=== PATIENT | male | born 1980 | race Caucasian/White ===

== ENCOUNTER 2022-01-04 16:44 | Emergency (ER) | payer BC, SELFPAY ==
[2022-01-04 16:47] VITALS: BP 165/110; PULSE 96; RESP 20; TEMP 36.3; O2SAT 94; BMI 47.3
--- NOTE | 2022-01-04 17:10 | ED.GENADULT ---
HPI - General Adult General Chief complaint: Extremity Pain/Injury, Lower Stated complaint: Gout Time Seen by Provider: 01/04/22 16:49 History of Present Illness HPI narrative: 41-year-old male coming in today complaining of foot pain. States that he feels like his usual gout. He states that he generally has a in his left knee or left foot however today's in his right foot. He states that since March when he got COVID he has been getting gouty attacks once or twice every month. States that he has tried allopurinol which did not work. States that he tried Humira in the past which were quite well however his insurance would not cover. He has not tried any other daily doubt preventative medication. He denies fevers or chills or any systemic symptoms. States that the pain and swelling started yesterday. Located in the left foot. Does not radiate up the leg. He recently had IM Solu-Medrol a Medrol Dosepak and Toradol-he is requesting the same treatment today. Related Data Previous Rx's Medication Instructions Recorded ketorolac 10 mg tablet 10 mg PO TID 5 Days #15 tab 01/04/22 methylprednisolone 4 mg tablets in See Rx Instructions .ROUTE 01/04/22 a dose pack (Medrol (Curtis)) .COMPLEX #21 ea Allergies Allergy/AdvReac Type Severity Reaction Status Date / Time indomethacin Allergy Intermediate Verified 01/04/22 16:54 Review of Systems Narrative: Entire review of systems was done was negative except for those things mentioned in the HPI. Exam Narrative: Exam Narrative: Obese, well-developed patient in no acute distress. Alert and oriented. Answers questions appropriately. Mood and affect are appropriate. Thoughts are goal oriented and rational. No tangential or magical thinking noted. Patient speaks in full sentences without needing to catch his breath. HEENT: Normocephalic atraumatic. Pupils are equally round reactive to light. Extraocular muscles are intact. Conjunctivae are moist without any icterus noted. Extremities: Left lower extremity is without edema. Normal DP and PT pulses. Right lower extremity shows a swollen right foot. He has a lot of tenderness on the dorsal surface of the foot. He has no swelling at the ankle. The foot is slightly erythematous but not indurated. The he has normal DP and PT pulses. Warm to touch. Const: Vital Signs, click to edit/add: Vital Signs - 24 hr 07/10/22 16:47 Temperature 97.3 F L Pulse Rate [Pulse Oximeter] 96 Respiratory Rate 20 Blood Pressure [Ri ght Upper Arm] 165/110 H Pulse Oximetry 94 Course Course Hospital Course: Discussed with the patient that this presentation could be cellulitis as well. Patient is quite certain that this is gout-states that this is how his gout always presents, encompassing the entire foot. Therefore, we did go ahead and do 60 mg of IM Solu-Medrol today while in the ER. Vital Signs Vital signs: Initial Vital Signs Temperature 97.3 F L 01/04/22 16:47 Temperature Source Temporal Artery Scan 01/04/22 16:47 Pulse Rate 96 01/04/22 16:47 Respiratory Rate 20 01/04/22 16:47 Blood Pressure 165/110 H 01/04/22 16:47 Blood Pressure Mean 128 01/04/22 16:47 Blood Pressure Position Supine 01/04/22 16:47 Pulse Oximetry 94 01/04/22 16:47 Oxygen Delivery Method 01/04/22 16:47 Vital Signs Temperature 97.3 F L 01/04/22 16:47 Pulse Rate 96 01/04/22 16:47 Respiratory Rate 20 01/04/22 16:47 Blood Pressure 165/110 H 01/04/22 16:47 Pulse Oximetry 94 01/04/22 16:47 Temperature 97.3 F L 01/04/22 16:47 Pulse Rate 96 01/04/22 16:47 Respiratory Rate 20 01/04/22 16:47 Blood Pressure 165/110 H 01/04/22 16:47 Pulse Oximetry 94 01/04/22 16:47 Medical Decision Making [facility] Narrative Medical decision making narrative: Patient will be discharged home with Toradol and a Medrol Dosepak. He understands if he is not seeing improvement in the next 24-48 hours he should return. He should return if he develops a fever, worsening pain or if the erythema starts to spread up the leg. Differential Diagnosis Differential Diagnosis: Includes cellulitis. Medical Records Medical records reviewed: Yes I reviewed the patient's medical records Discharge Plan Discharge Clinical Impression: Gout Patient Disposition: Home, Self-Care Condition: Stable Instructions: Gout (ED) Additional Instructions: Take all medication as prescribed. Follow-up with your primary care provider to discuss other gout prevention strategies such as Uloric. Return to the ER if you develop fever, increasing redness that spreads up the leg, fevers or vomiting. Prescriptions: New ketorolac 10 mg tablet 10 mg PO TID 5 Days Qty: 15 0RF methylprednisolone [Medrol (Curtis)] 4 mg tablets,dose pack See Rx Instructions .ROUTE .COMPLEX Qty: 21 0RF Rx Instructions: orally per package directions Stand Alone Forms: [facility] Info Instructions
[2022-01-04] MEDS: METHYLPREDNISOLONE 60 EACH IM (17:27)
== END 2022-01-04 17:38 | disposition home or self-care (01) ==
LOC: ED 17:18
PROVIDERS: Emergency Provider Family Medicine
DX: M10.9 Gout, unspecified (principal)
CPT/HCPCS: 96372; 99283; 99284

== ENCOUNTER 2023-04-25 12:00 | Emergency (ER) | payer BC, SELFPAY ==
[2023-04-25 12:11] VITALS: BP 172/94; PULSE 80; RESP 18; TEMP 37; O2SAT 95; BMI 41.5
--- NOTE | 2023-04-25 12:31 | ED.GENADULT ---
HPI - General Adult General Chief complaint: Extremity Pain/Injury, Lower Stated complaint: foot gout Time Seen by Provider: 04/25/23 12:05 Source: patient Mode of arrival: ambulatory Limitations: no limitations History of Present Illness HPI narrative: 42-year-old male presenting today with gout flare-up the of the right foot. Patient has a long history of very difficult to treat gout with frequent flare ups. He just finished a Medrol Dosepak which he told his provider does not work as soon as he drops the dose his pain comes back. He states that he recently the only thing that has worked is a long taper of prednisone. He states that he was told by his provider that long-term steroid use can be harmful and that the provider did not want to give him any prednisone. Patient states that he has not gone in to talked to a primary care provider about preventative medication. He states he has taken allopurinol in the past which does not help and he has been treated with indomethacin as well as colchicine which also did not help. He has never taken Uloric in states that he is too busy to go see a primary care provider. Denies any systemic symptoms. Related Data Previous Rx's Medication Instructions Recorded ketorolac 10 mg tablet 10 mg PO TID 5 days #15 tabs 01/04/22 methylprednisolone 4 mg tablets in See Rx Instructions PO .COMPLEX 01/04/22 a dose pack (Medrol (Curtis)) #21 ea prednisone 20 mg tablet 20 mg PO DIRECTED 9 days #18 04/25/23 tabs Allergies Allergy/AdvReac Type Severity Reaction Status Date / Time indomethacin Allergy Intermediate Verified 07/22/22 14:02 Review of Systems Status of ROS: Reports: 6 or more systems reviewed and unremarkable except as noted in History and below [facility] PFS Surgical History History of elbow surgery (09/28/13) ?Z98.890 - Other specified postprocedural states (ICD-10) Social History Smoking Status: Never smoker Do you use any of these nicotine containing products: None Second hand tobacco smoke exposure: No How often do you have a drink containing alcohol: never How often do you have six or more drinks on one occasion: Never AUDIT-C Alcohol total score: 0 Non-prescribed substance use: denies use service: Yes Exam Narrative: Exam Narrative: Obese, well-developed patient in no acute distress. Alert and oriented. Answers questions appropriately. Mood and affect are appropriate. Thoughts are goal oriented and rational. No tangential or magical thinking noted. Patient speaks in full sentences without needing to catch his breath. HEENT: Normocephalic atraumatic. Pupils are equally round reactive to light. Extraocular muscles are intact. Conjunctivae are moist without any icterus noted. Moist mucous membranes. Extremities: Right foot is swollen, not erythematous. He has tenderness to touch over the dorsal surface of the entire foot. 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.) Const: Vital Signs, click to edit/add: Vital Signs - 24 hr 04/25/23 12:11 Temperature 98.6 F Pulse Rate [Pulse Oximeter] 80 Respiratory Rate 18 Blood Pressure [Le ft Upper Arm] 172/94 H Pulse Oximetry 95 Oxygen Delivery Me thod Room Air Course Vital Signs Vital signs: Initial Vital Signs Temperature 98.6 F 04/25/23 12:11 Temperature Source Temporal Artery Scan 04/25/23 12:11 Pulse Rate 80 04/25/23 12:11 Pulse Rhythm Regular 04/25/23 12:11 Respiratory Rate 18 04/25/23 12:11 Blood Pressure 172/94 H 04/25/23 12:11 Blood Pressure Mean 120 H 04/25/23 12:11 Blood Pressure Position Supine 04/25/23 12:11 Pulse Oximetry 95 04/25/23 12:11 Oxygen Delivery Method Room Air 04/25/23 12:11 Vital Signs Temperature 98.6 F 04/25/23 12:11 Pulse Rate 80 04/25/23 12:11 Respiratory Rate 18 04/25/23 12:11 Blood Pressure 172/94 H 04/25/23 12:11 Pulse Oximetry 95 04/25/23 12:11 Oxygen Delivery Method Room Air 04/25/23 12:11 Temperature 98.6 F 04/25/23 12:11 Pulse Rate 80 04/25/23 12:11 Respiratory Rate 18 04/25/23 12:11 Blood Pressure 172/94 H 04/25/23 12:11 Pulse Oximetry 95 04/25/23 12:11 Oxygen Delivery Method Room Air 10/29/23 12:11 Medical Decision Making MDM Narrative Medical decision making narrative: 42-year-old male with poorly controlled gout. We had lengthy discussion today about him needing to see primary care to discuss preventative measures so that he can decrease his steroid use. Patient states that he understands and that his new year's resolution will be to take better care of himself. I asked him not to wait until the new year. Medical Records Medical records reviewed: Yes I reviewed the patient's medical records Discharge Plan Discharge Clinical Impression: Gout Patient Disposition: Home, Self-Care Condition: Stable Additional Instructions: You must follow-up with a primary care provider to discuss preventative medication so that you can decrease your use of steroids. You should also discuss alternative diagnoses to your foot pain. Prescriptions: New prednisone 20 mg tablet 20 mg PO DIRECTED 9 Days Qty: 18 0RF Rx Instructions: 60 mg p.o. daily for 3 days (3 tablets daily on day 1-3), 40 mg daily for 3 days (2 tablets daily on days 4-6), 20 mg daily for 3 days (1 tablet daily on days 7-9). No Action ketorolac 10 mg tablet 10 mg PO TID 5 Days Qty: 15 0RF methylprednisolone [Medrol (Curtis)] 4 mg tablets,dose pack See Rx Instructions .ROUTE .COMPLEX Qty: 21 0RF Rx Instructions: orally per package directions Follow Up/Referrals: Provider,Not a Local [Primary Care Provider] - Stand Alone Forms: [employer] Info Instructions
[2023-04-25] MEDS: KETOROLAC 30 MG/ML inj 60 MG IM (13:16)
== END 2023-04-25 13:31 | disposition home or self-care (01) ==
LOC: ED 12:40
PROVIDERS: Emergency Provider Family Medicine
DX: M10.9 Gout, unspecified (principal)
CPT/HCPCS: 96372; 99283; J1885

== ENCOUNTER 2023-10-23 05:03 | Emergency (ER) | payer BC, SELFPAY ==
[2023-10-23 05:11] VITALS: BP 205/122; PULSE 87; RESP 18; TEMP 36.7; O2SAT 96; BMI 45.0
--- NOTE | 2023-10-23 05:18 | ED.GENADULT ---
HPI - General Adult General Chief complaint: Unspecified Complaint, Adult Stated complaint: right foot pain/gout Time Seen by Provider: 10/23/23 05:09 History of Present Illness HPI narrative: Patient is a 43-year-old gentleman who comes in with pain and swelling in his right ankle. He has history of gout but has not tolerated allopurinol in the past. He is has over the last 2 days developed redness swelling and induration of the right foot and ankle. He has no skin breakdown and no warmth. This is a typical presentation for gout for him. He does well with a course of prednisone. Related Data Previous Rx's Medication Instructions Recorded prednisone 20 mg tablet 20 mg PO QDAY #18 tabs 09/07/23 Allergies Allergy/AdvReac Type Severity Reaction Status Date / Time indomethacin Allergy Intermediate Verified 09/07/23 13:51 colchicine Allergy Unknown Verified 09/07/23 13:51 Review of Systems Status of ROS: Reports: 10 or more systems reviewed and unremarkable except as noted in History and below PFSH PFS Surgical History History of elbow surgery (09/28/13) ?Z98.890 - Other specified postprocedural states (ICD-10) Social History Smoking Status: Never smoker Do you use any of these nicotine containing products: None Second hand tobacco smoke exposure: No How often do you have a drink containing alcohol: never How often do you have six or more drinks on one occasion: Never AUDIT-C Alcohol total score: 0 Non-prescribed substance use: denies use service: Yes Exam Narrative: Exam Narrative: EXAM GENERAL: Patient appears comfortable and well. EYES: No scleral icterus. LYMPH: No supraclavicular or cervical lymphadenopathy. SKIN: Visible skin seen during exam normal or with benign process only. EXT: Swelling and redness on the right foot ankle no other significant findings. Patient is missing his 5th toe from a childhood injury. HEART: Regular rate and rhythm with no murmurs, rubs, or gallops. LUNGS: Clear to auscultation bilaterally with no crackles or wheezes. ABD: Soft, non tender, non distended. PSYCH: Good eye contact, speech is not pressured. Const: Vital Signs, click to edit/add: Vital Signs - 24 hr 10/23/23 05:11 Temperature 98.1 F Pulse Rate [Pulse Oximeter] 87 Respiratory Rate 18 Blood Pressure [Ri ght Upper Arm] 205/122 H Pulse Oximetry 96 Oxygen Delivery Me thod Room Air Course Course ED Course: Patient seen and examined. Vital Signs Vital signs: Initial Vital Signs Temperature 98.1 F 10/23/23 05:11 Temperature Source Temporal Artery Scan 10/23/23 05:11 Pulse Rate 87 10/23/23 05:11 Respiratory Rate 18 10/23/23 05:11 Blood Pressure 205/122 H 10/23/23 05:11 Blood Pressure Mean 149 H 10/23/23 05:11 Blood Pressure Position Sitting 10/23/23 05:11 Pulse Oximetry 96 10/23/23 05:11 Oxygen Delivery Method Room Air 10/23/23 05:11 Vital Signs Temperature 98.1 F 10/23/23 05:11 Pulse Rate 87 10/23/23 05:11 Respiratory Rate 18 10/23/23 05:11 Blood Pressure 205/122 H 10/23/23 05:11 Pulse Oximetry 96 10/23/23 05:11 Oxygen Delivery Method Room Air 10/23/23 05:11 Temperature 98.1 F 10/23/23 05:11 Pulse Rate 87 10/23/23 05:11 Respiratory Rate 18 10/23/23 05:11 Blood Pressure 205/122 H 10/23/23 05:11 Pulse Oximetry 96 10/23/23 05:11 Oxygen Delivery Method Room Air 10/23/23 05:11 Medical Decision Making [facility] Narrative Medical decision making narrative: Patient is a 43-year-old gentleman with history of gout who unfortunately has an episode of gout. Will plan to treat him with prednisone 20 mg twice daily for 5 days. I did recommend he follow-up with his primary physician potentially be started on Uloric 0 or similar product. Differential diagnosis includes but not limited to septic joint gout osteoarthritis peripheral vascular disease rheumatoid arthritis cellulitis. Discharge Plan Discharge Clinical Impression: Gout Condition: Stable Instructions: Gout (ED) Additional Instructions: Prednisone as directed Follow-up with your doctor Activity Level: No Restrictions Discharge Diet: Regular Prescriptions: No Action prednisone 20 mg tablet 20 mg PO QDAY Qty: 18 0RF Rx Instructions: 60 mg p.o. daily for 3 days (3 tablets daily on day 1-3), 40 mg daily for 3 days (2 tablets daily on days 4-6), 20 mg daily for 3 days (1 tablet daily on days 7-9) Follow Up/Referrals: Provider,Not a Local [Primary Care Provider] - Stand Alone Forms: [employer] Info Instructions
== END 2023-10-23 05:25 | disposition home or self-care (01) ==
LOC: ED 05:23
PROVIDERS: Emergency Provider Internal Medicine
DX: M10.9 Gout, unspecified (principal)
CPT/HCPCS: 99283

== ENCOUNTER 2024-01-17 21:51 | Emergency (ER) | payer BC, SELFPAY ==
[2024-01-17 21:56] VITALS: BP 161/90; PULSE 102; RESP 16; TEMP 36.4; O2SAT 95; BMI 47.3
--- NOTE | 2024-01-17 22:05 | ED_ITS ---
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 - Last Filed: 01/19/24 11:39> Activity Level: Activity as Tolerated <Angelita Watkins MD - Last Filed: 01/19/24 11:39> Activity as Tolerated <Abdiel Ojeda MD - Last Filed: 01/18/24 02:07> Discharge Diet: Regular <Angelita Watkins MD - Last Filed: 01/19/24 11:39> Regular <Abdiel Ojeda MD - Last Filed: 01/18/24 02:07> Prescriptions: New doxycycline monohydrate 100 mg capsule 100 mg PO BID 14 Days Qty: 28 0RF No Action lisinopril 20 mg tablet 20 mg PO DAILY <Angelita Watkins MD - Last Filed: 01/19/24 11:39> Follow Up/Referrals: Provider,Not a Local [Staff Physician] - <Angelita Watkins MD - Last Filed: 01/19/24 11:39> Stand Alone Forms: MyHealth Info Instructions <Angelita Watkins MD - Last Filed: 01/19/24 11:39>
[2024-01-17 22:15] VITALS: O2SAT 97
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
--- NOTE | 2024-01-17 22:15 | CRLHL7_ITS ---
For Patients: As a result of the Century Cures Act, medical imaging exams and procedure reports are released immediately into your electronic medical record. You may view this report before your referring provider. If you have questions, please contact your health care provider. INDICATION: Chest discomfort TECHNIQUE: Chest radiograph 1 view COMPARISON: 08/29/2018 FINDINGS: The sensitivity and specificity of the exam are moderately limited by the patient`s body habitus. Mediastinum: The mediastinum is normal in appearance. The heart silhouette is normal in size and morphology. Lung: Small lung volumes are present with mild perihilar atelectasis noted. No sign of pleural effusion seen. No pneumothorax is identified. Bone and Soft tissue: Unremarkable for age. IMPRESSION: 1. Small lung volumes are present with mild perihilar atelectasis noted. Dictated by Sinan Smith MD @ 01/17/2024 11:37:22 PM Dictated by: Sinan Smith MD @ 01/17/2024 23:37:28 (Electronically Signed)
[2024-01-17] MEDS: METOCLOPRAMIDE HCL 10 MG in 0.9 % SODIUM CHLORIDE 100 ml 100 ML 306 MG IVPB (22:50)
[2024-01-17] MEDS: 0.9 % SODIUM CHLORIDE 1000 ml 1,000 ML 500 ML IV (22:50)
[2024-01-17] MEDS: diphenhydrAMINE 50 MG/ML inj 25 MG IVP (22:50)
[2024-01-17 22:55] LABS: Basophils Percent Auto 0.3 % (0.0-3.0); Eosinophils Percent Auto 1.4 % (0.0-7.0); Hematocrit 51.9 % (37.0-53.0); Hemoglobin* 17.3 gm/dL (13.5-17.5); Immature Granulocytes Pct Auto 0.1 %; Lymphocytes Percent Auto 87.6 % (20-44); Mean Corpuscular HGB Conc 33 gm/dL (32-36); Mean Corpuscular Hemoglobin 27 pg (26-34); Mean Corpuscular Volume 80 fL (80-100); Neutrophils Percent Auto 7.6 % (42.0-72.0); Platelet Count* 140 K/uL (140-440); RDW Coefficient of Variation % 11.7 % (11.5-15.5); Red Blood Count 6.51 m/uL (4.30-5.90); White Blood Count* 15.21 K/uL (4.50-11.00)
[2024-01-17 22:57] LABS: Slide Review Reflex No
[2024-01-17 23:01] LABS: Albumin* 4.2 g/dL (3.3-5.0); Chloride* 101 mmol/L (96-114); Sodium* 137 mmol/L (135-149)
[2024-01-17 23:02] LABS: Potassium* 3.7 mmol/L (3.6-5.1)
[2024-01-17 23:04] LABS: Alkaline Phosphatase* 79 U/L (40-150); Anion Gap 7 mEq/L (7-15); Aspartate Amino Transferase* 35 U/L (12-35); Carbon Dioxide* 29 mmol/L (20-32); Creatinine* 1.1 mg/dL (0.5-1.5); Estimated Glomerular Filt Rate 85 ml/min; Total Protein* 7.1 g/dL (6.0-8.3)
[2024-01-17 23:05] LABS: Alanine Aminotransferase* 43 U/L (4-50); Blood Urea Nitrogen* 15 mg/dL (5-24); Glucose* 114 mg/dL (60-115)
[2024-01-17 23:15] LABS: Troponin I* 0.01 ng/mL (0.01-0.04)
[2024-01-17 23:23] LABS: D Dimer Quantitative* 2.17 ug/ml (0.00-0.50)
[2024-01-17 23:43] VITALS: TEMP 39.3
[2024-01-17 23:58] LABS: RBC Urine 0-2 (0-2)
[2024-01-18] VITALS: BP 188/97; PULSE 102; RESP 20; O2SAT 92
--- NOTE | 2024-01-18 | CRLHL7_ITS ---
For Patients: As a result of the Century Cures Act, medical imaging exams and procedure reports are released immediately into your electronic medical record. You may view this report before your referring provider. If you have questions, please contact your health care provider. INDICATION: Chest pain. TECHNIQUE: CT chest PE was acquired with 95 cc Isovue 370 IV contrast. COMPARISON: Chest radiograph 01/17/2024. FINDINGS: Heart and vasculature: Contrast opacification of the pulmonary arterial tree is suboptimal. No sign of large central pulmonary embolism. Heart size is normal. Thoracic aorta and pulmonary artery are normal in caliber. Lungs and pleura: Lungs and pleural spaces are clear. No suspicious nodules or infiltrates. No pleural effusions, pleural thickening, or pneumothorax. Lymph nodes/mediastinum: No mediastinal, hilar, or axillary adenopathy. Thyroid gland is unremarkable. Chest wall: No masses. Upper abdomen: Please refer to separate concurrent CT abdomen and pelvis. Bones: Unremarkable for age. IMPRESSION: 1. Suboptimal contrast opacification of the pulmonary arteries without evidence of large central pulmonary embolism. 2. No acute infiltrates. Please note that all CT scans at this facility use dose modulation, iterative reconstruction, and/or weight-based dosing when appropriate to reduce radiation dose to as low as reasonably achievable. Dictated by Justin Trejo MD @ 01/18/2024 1:22:31 AM (Electronically Signed)
--- NOTE | 2024-01-18 | CRLHL7_ITS ---
For Patients: As a result of the Century Cures Act, medical imaging exams and procedure reports are released immediately into your electronic medical record. You may view this report before your referring provider. If you have questions, please contact your health care provider. INDICATION: Fever. TECHNIQUE: CT abdomen and pelvis acquired with 95 cc Isovue 370 IV contrast. COMPARISON: None. FINDINGS: Lower chest: Please refer to separate concurrent CT chest PE. Liver: Hepatic steatosis. No suspicious masses. Gallbladder and bile ducts: Contracted gallbladder. No stones or inflammation. No biliary ductal dilatation. Spleen: Enlarged spleen. Adrenal glands: Unremarkable. No nodules. Pancreas: Unremarkable. No mass or inflammation. Kidneys: Unremarkable. No suspicious masses, stones, or hydronephrosis. GI tract: Unremarkable. Normal in caliber. No evidence of obstruction. Normal appendix. Lymph nodes: No lymphadenopathy. Vasculature: Unremarkable. Omentum/Peritoneum/Abdominal Wall: Fat containing umbilical hernia. No free air or significant free fluid. Pelvis: Unremarkable. Bones: Severe L4-L5 disc space narrowing. IMPRESSION: 1. Splenomegaly. 2. Otherwise no acute abdominal or pelvic abnormality. 3. Hepatic steatosis. Please note that all CT scans at this facility use dose modulation, iterative reconstruction, and/or weight-based dosing when appropriate to reduce radiation dose to as low as reasonably achievable. Dictated by Justin Trejo MD @ 01/18/2024 1:25:33 AM (Electronically Signed)
[2024-01-18 00:02] LABS: Appearance Urine Clear (Clear); Bilirubin Urine Negative (Negative); Blood Urine Trace-intact (Negative); Color Urine Yellow (Yellow); Glucose Urine Negative (Negative); Ketones Urine Negative (Negative); Leukocyte Esterase Urine Negative (Negative); Nitrite Urine Negative (Negative); Protein Urine Negative (Negative); Urobilinogen Urine 0.2 (0.2-1.0)
[2024-01-18 00:04] VITALS: TEMP 39.3
[2024-01-18] MEDS: 0.9 % SODIUM CHLORIDE 1000 ml 1,000 ML IV (00:04)
[2024-01-18] MEDS: ACETAMINOPHEN 500 MG TABLET 1000 MG PO (00:04)
[2024-01-18 00:14] LABS: Lactate* 1.3 mmol/L (0.5-1.9)
[2024-01-18 00:26] VITALS: BP 188/97; PULSE 104; RESP 20; O2SAT 92
[2024-01-18 00:31] LABS: Bacteria Urine Few; Squamous Epithelial Cell Urine Few (None-Few); WBC Urine 0-2 (0-5)
[2024-01-18 00:35] LABS: PCR FLU A Negative PCR FLU A (Negative); PCR FLU B Negative PCR FLU B (Negative); PCR RSV Negative PCR RSV (Negative); SARS PCR* Negative SARS-CoV-2 (Negative)
[2024-01-18 00:43] LABS: Procalcitonin* 0.35 ng/mL (<0.50)
[2024-01-18 01:09] VITALS: BP 177/98; PULSE 118; RESP 18; O2SAT 94
[2024-01-18 02:01] VITALS: BP 149/84; PULSE 104; RESP 18; O2SAT 94
[2024-01-18] MEDS: DOXYCYCLINE HYCLATE 100 MG PO (02:08)
--- NOTE | 2024-01-19 07:33 | PC.NURSE ---
Pt called looking for results from tick panel. Informed pt that lands are still pending. Pt stated that he still feels bad with a headache and his joints feel like they have gravel. Advised pt that he could call his PCP to ask for medical advice or he was welcome to be reevaluated in the ER if he chooses. Pt stated he understood. No further questions
[2024-01-19 23:55] LABS: Lyme ELISA Reflex 0.15 IV (<=0.90)
[2024-01-20 19:15] LABS: Anaplasma phagocyt PCR Not Detected; Babesia microti by PCR Not Detected; Babesia species by PCR Not Detected; Ehrlichia chaffeensis by PCR Not Detected; Ehrlichia ewingii/canis by PCR Not Detected; Ehrlichia muris-like by PCR Not Detected
== END 2024-01-18 02:21 | disposition home or self-care (01) ==
PROVIDERS: Family Medicine; Emergency Provider Family Medicine; PCP Family Medicine
DX: R51.9 Headache, unspecified (principal); R50.9 Fever, unspecified; S00.86XA Insect bite (nonvenomous) of other part of head, initial encounter
CPT/HCPCS: 36415; 70450; 71045; 71275; 74177; 80053; 81001; 83605; 84145; 84484; 85025; 85379; 86618; 87040; 87086; 87468; 87469; 87484; 87631; 87798; 93005; 94761; 96365; 96375; 99285; A9270; J1200; J2765; J7030; Q9967

== ENCOUNTER 2024-09-22 12:06 | Outpatient (CLI) | payer BC, SELFPAY | END 2024-09-22 12:07 | disposition home or self-care (01) | LOC: AMB 09-25 09:07 | PROVIDERS: PCP Family Medicine; Visit Provider Family Medicine | DX: R07.9 Chest pain, unspecified (principal) | CPT/HCPCS: A0998 ==

== ENCOUNTER 2024-09-22 12:35 | Emergency (ER) | payer BC, SELFPAY ==
[2024-09-22] VITALS (56 sets, daily range): BP systolic 115–188; BP diastolic 64–151; PULSE 67–151; RESP 0–23; TEMP 36.1; O2SAT 86–96
--- OUTSIDE RECORDS SUMMARY | 2024-09-22 12:36 | XMS_ITS | Clinical Summary ---
Author Organization [facility] Address [address] [place] [address] Care Team Providers Care Heel Burnisher Name Role Phone Abdiel Chavez MD Primary Care Provider [phone] Allergies Active Allergy Reactions Criticality Noted Date Comments Indomethacin Nausea and Vomiting 04/03/2013 Other reaction(s): Other (see comments) Urine retention Urine retention Tramadol High 09/06/2021 Other reaction(s): Other (see comments) Medications oxyCODONE (ROXICODONE) 5 MG tabletIndicatio ns:Tendonitis of right pectoralis major Take 1-2 tablets (5-10 mg) by mouth every 4 hours as needed for moderate to severe pain 20 tablet 06/24/2022 Active senna-docusate (SENOKOT-S/PARKER COLACE) 8.6-50 MG tabletIndicatio ns:Tendonitis of right pectoralis major Take 1-2 tablets by mouth 2 times daily 30 tablet 06/24/2022 Active ondansetron (ZOFRAN ODT) 4 MG ODT tabIndications: Tendonitis of right pectoralis major Take 1 tablet (4 mg) by mouth every 8 hours as needed for nausea 4 tablet 06/24/2022 Active hydrOXYzine (VISTARIL) 25 MG capsuleIndicati ons:Tendonitis of right pectoralis major Take 2 capsules (50 mg) by mouth every 6 hours as needed for itching or anxiety (TAKE WITH THE OXYCODONE) 20 capsule 06/24/2022 Active Social History Tobacco Use Types Packs/Day Years Used Date Smoking Tobacco: Never Smokeless Tobacco: Never Tobacco Cessation:Counseling Given: Not Answered Alcohol Use Standard Drinks/Week Comments Not Currently 0 (1 standard drink = 0.6 oz pur e alcohol) over 11 years ago Adolescent Education Answer Date Record ed Getting School Help Needed Not on file 03/20 Sex and Gender Information Value Date Recorded Sex Assigned at Not on file Legal Sex Male 3:28 PM CDT Gender Identity Not on file Sexual Orientation Not on file Last Filed Vital Signs Vital Sign Reading Time Taken Comments Blood Pressure 141/99 07/16/2023 12:22 PM PULPER Pulse 97 07/16/2023 12:22 PM PULPER Temperature 36.3 C (97.4 F) 07/16/2023 11:12 AM PULPER Respiratory Rate 22 07/16/2023 11:12 AM PULPER Oxygen Saturation 100% 07/16/2023 12:23 PM PULPER Inhaled Oxygen Concentration - - Weight 133.8 kg (295 lb) 07/16/2023 11:12 AM PULPER Height 175.3 cm (5' 9) 06/18/2022 9:00 AM PULPER Body Mass Index 43.56 06/18/2022 9:00 AM PULPER Plan of Treatment Health Maintenance Due Date Last Done Comments ADVANCE CARE PLANNING 1979 ANNUAL REVIEW OF HM ORDERS 1979 CT COLONOGRAPHY 1979 FIT 1979 FLEX SIG 1979 sDNA (Cologuard) 1979 YEARLY PREVENTIVE VISIT 1982 COLONOSCOPY 1989 COLORECTAL CANCER SCREENING 1989 HIV SCREENING 1994 HEPATITIS C SCREENING 1997 HEPATITIS B IMMUNIZATION (1 of 3 - 19+ 3-dose series) 1998 LIPID 2019 COVID-19 Vaccine (1 - season) 2024 INFLUENZA VACCINE (#1) 2024 11/10/2021 PHQ-2 (once per calendar year) 2024 DTAP/TDAP/TD IMMUNIZATION (4 - Td or Tdap) 12/17/2025 12/18/2015, 03/13/2010, 04/05/1985, Additional history exists DIABETES SCREENING 07/16/2026 07/16/2023, 1 , 04/11/2022 ZOSTER IMMUNIZATION (1 of 2) 2029 HPV IMMUNIZATION Aged Out No longer e ligible based on patient's age to complete this topic MENINGITIS IMMUNIZATION Aged Out No l onger eligible based on patient's age to complete this topic Pneumococcal Vaccine: Pediatrics (0 to 5 Years) and At-Risk Patients (6 to 49 Years) Aged Out No longer eligible based on patient's age to complete this topic Medical Devices Implanted Type Area Assistant Golf Coach Device Identifier Shelf Expiration Date Model / Serial / Lot Button Suture Repair Large Ti F/Pectoralis Major - [id number] Implanted:Qty : 1 on 06/24/2022 by Maykel Sexton MD at [facility] Metallic Hardware/Anc hor Right: Shoulder [employer] 02/25/2026 AR-2267 / / [id number] Button Suture Repair Large Ti F/Pectoralis Major - [id number] Implanted:Qty : 2 on 06/24/2022 by Maykel Sexton MD at [facility] Metallic Hardware/Anc hor Right: Shoulder [employer] 09/25/2025 AR-2267 / / [id number] Procedures Procedure Name Priority Date/Time Associated Diagnosis Comments BASIC METABOLIC PANEL STAT 07/16/2023 11:52 AM PULPER from Last 3 Months or Most Recently Relevant to Health Maintenance Results * (ABNORMAL) Basic metabolic panel (BMP) (07/16/2023 11:52 AM PULPER) [facility] Sodium 139 135 - 145 mmol/L 07/16/2023 12:45 PM [facility] Comment:Reference intervals for this test were updated on 03/23/2023 to more accurately reflect our healthy population. There may be differences in the flagging of prior results with similar values performed with this method. Interpretation of those prior results can be made in the context of the updated reference intervals. Potassium 4.0 3.4 - 5.3 mmol/L 07/16/2023 12:45 PM [facility] Chloride 101 98 - 107 mmol/L 07/16/2023 12:45 PM [facility] Carbon Dioxide (CO2) 25 22 - 29 mmol/L 07/16/2023 12:45 PM [facility] Anion Gap 13 7 - 15 mmol/L 07/16/2023 12:45 PM [facility] Urea Nitrogen 13.7 6.0 - 20.0 mg/dL 07/16/2023 12:45 PM [facility] Creatinine 0.84 0.67 - 1.17 mg/dL 07/16/2023 12:45 PM [facility] GFR Estimate >90 >60 mL/min/1. 73m2 07/16/2023 12:45 PM [facility] Calcium 9.6 8.6 - 10.0 mg/dL 07/16/2023 12:45 PM [facility] Glucose 145(H) 70 - 99 mg/dL 07/16/2023 12:45 PM [facility] Blood STRUCTURE OF LEFT HAND / Unknown Venipuncture / Unknown 07/16/2023 11:52 AM PULPER 07/16/2023 12:21 PM PULPER us Jamshid Husain MD LAB - BLOOD ORDERABLES Final Res ult LABORATORY [facility] [address] [facility] Lab (1st floor, no room number) [place] [address], [facility] [phone] from Last 3 Months or Most Recently Relevant to Health Maintenance Insurance BCBS OUT OF STATE BCBS OUT OF STATE [place]OHNSON Advance Directives For more information, please contact: [phone] * Full Code (Latest Code Status on File) Date Activated Date Inactivated Comments 06/24/2022 10:35 PM 06/25/2022 1:02 PM All basic and advanced life-sustaining interventions are performed as appropriate Question Answer Comments Code status determined by: Discussion with lynne nt/ legal decision maker Care Teams Heel Burnisher Relationship Specialty Start Date End Date Abdiel Chavez MD [address] [place], [place] [address]wei ROE KAYY [id number] PCP - General 07/16/23
--- OUTSIDE RECORDS SUMMARY | 2024-09-22 12:37 | XMS_ITS | Clinical Summary ---
Author Organization [facility] Address [address] [place] [address] Care Team Providers Care Coding Director Name Role Phone Pcp, No Primary Care Provider Unavailabl e Allergies Active Allergy Reactions Criticality Noted Date Comments Indomethacin Vomiting 04/03/2013 Urine retention Medications colchicine 0.6 mg tabletIndication s:Gout, unspecified cause, unspecified chronicity, unspecified site Take 1 tablet by mouth once daily. 30 tablet 06/10/2018 Active acyclovir (ZOVIRAX) 400 mg tabletIndication s:Herpes simplex One oral three times daily x 7 days as needed fever blister 20 tablet 2 07/14/2018 Active predniSONE (DELTASONE) 20 mg tabletIndication s:Olecranon bursitis of left elbow Take 1 tablet by mouth once daily with a meal. 7 tablet 07/14/2018 Active diclofenac (VOLTAREN) 75 mg delayed-release tabletIndication s:Olecranon bursitis of left elbow Take 1 tablet by mouth 2 times daily with meals. 28 tablet 07/14/2018 Active amLODIPine (NORVASC) 2.5 mg tabletIndication s:Hypertension, unspecified type Take 1 tablet by mouth once daily. 30 tablet 08/30/2018 Active Active Problems Problem Noted Date Diagnosed Date Primary osteoarthritis of left ankle 02/07/2018 Lumbar herniated disc 03/22/2014 Gout 03/15/2014 HTN (hypertension) 03/14/2014 Immunizations Immunization Administration Dates Next Due DTaP 04/05/1985,10/05/1984 MMR 10/05/1984 Polio Virus, Unspecified 10/05/1984 Td (Age >=7 Years) 03/13/2010 Tdap 12/18/2015 Family History Medical History Relation Name Comments Hyperlipidemia Father Hypertension Father Diabetes Maternal Grandfather Heart Disease Maternal Grandfather i n his 80's Diabetes Maternal Grandmother Diabetes Maternal Uncle Anesthesia Problem No Family History Blood Disease No Family History Relation Name Status Comments Father Maternal Grandfather Maternal Grandmother Maternal Uncle Social History Tobacco Use Types Packs/Day Years Used Date Smoking Tobacco: Never Smokeless Tobacco: Never Tobacco Cessation:Counseling Given: Yes Alcohol Use Standard Drinks/Week Comments No 0 (1 standard drink = 0.6 oz pur e alcohol) 2014 PHQ-2 Answer Date Recorded PHQ-2 Score 3 08/29/2018 Sex and Gender Information Value Date Recorded Sex Assigned at Not on file Legal Sex Male 8:07 AM PUBLIC HEALTH ADMINISTRATOR Gender Identity Not on file Sexual Orientation Not on file 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 on file Not on file Not on file Obstetrics History Last Filed Vital Signs Vital Sign Reading Time Taken Comments Blood Pressure 163/93 08/30/2018 10:26 AM PUBLIC HEALTH ADMINISTRATOR Pulse 100 08/30/2018 10:26 AM PUBLIC HEALTH ADMINISTRATOR Temperature 38.4 C (101.1 F) 08/30/2018 10:26 AM PUBLIC HEALTH ADMINISTRATOR Respiratory Rate 20 01/26/2018 1:33 PM CDT Oxygen Saturation 97% 08/30/2018 10:26 AM PUBLIC HEALTH ADMINISTRATOR Inhaled Oxygen Concentration - - Weight 136.5 kg (301 lb) 08/30/2018 10:26 AM PUBLIC HEALTH ADMINISTRATOR Height 176 cm (5' 9.29) 08/30/2018 10:26 AM PUBLIC HEALTH ADMINISTRATOR Body Mass Index 44.08 08/30/2018 10:26 AM PUBLIC HEALTH ADMINISTRATOR Plan of Treatment Health Maintenance Due Date Last Done Comments HIV for age 15-65 1994 Hepatitis C screening for age 18-79 1997 Depression screening for age 12+ 10/11/2018 10/11/2017, 07/14/2016, 07/16/2015 BMI (ht and wt on same day) for age 18+ 08/31/2019 08/30/2018, 07/14/2018, 06/08/2018, Additional history exists COVID-19 vaccine series ( - 2023- season) 2024 Influenza Vaccine (#1) 2024 Colonoscopy through age 75 2024 Lipids for age 45-75 2024 03/14/2014, 03/14/20 14 Tetanus booster 12/17/2025 12/18/2015, 03/13/2010 Tdap Completed 12/18/2015 Pneumococcal series for age 6-49 Aged Out No longer eligible based on patient's age to complete this topic Goals Goal Patient Goal Type Associated Problems Recent Progress Patient-Stated? Author BLOOD PRESSURE - MAINTAINS BP less than 140/90 Blood Pressure Nicole Teran MD Procedures Procedure Name Priority Date/Time Associated Diagnosis Comments LIPID PANEL W REFLEX MEASURED LDL Routine 03/14/2014 2:39 PM CDT Hypertension from Last 3 Months or Most Recently Relevant to Health Maintenance Results * (ABNORMAL) LIPID PANEL W REFLEX MEASURED LDL (03/14/2014 2:39 PM CDT) CHOLESTEROL,TOTAL 174 100 - 199 mg/dL 03/14/2014 3:32 PM CDT [facility] TRIGLYCERIDES 522(H) <150 mg/dL 03/14/2014 3:32 PM CDT [facility] HDL CHOLESTEROL 29(L) >40 mg/dL 4 3:32 PM CDT [facility] NON-HDL CHOLESTEROL 145(H) <145 mg/dl 03/14/2014 3:32 PM CDT [facility] CHOL/HDL RATIO 6.00(H) <4.50 03/14/2014 3:32 PM CDT [facility] LDL CHOLESTEROL 4 3:32 PM CDT [facility] Comment:Invalid LDL when Tri g >400, reflexed to measured LDL PATIENT STATUS FASTING 03/14/2014 3:32 PM CDT [facility] Blood specimen (specimen) BLOOD SPECIMEN / Unknown Venipuncture / Unknown 03/14/2014 2:39 PM CDT 03/14/2014 2:40 PM CDT us Nicole Chinchilla MD CHEMISTRY Shahnaz l Result [facility] [address] [place] [address], [place] [phone] from Last 3 Months or Most Recently Relevant to Health Maintenance Advance Directives * Full Code (Latest Code Status on File) Date Activated Date Inactivated Comments 05/03/2014 2:04 PM 05/04/2014 5:00 PM * Full Code Date Activated Date Inactivated Comments 05/03/2014 8:00 AM 05/03/2014 2:04 PM Care Teams Coding Director Relationship Specialty Start Date End Date Pcp, No . PCP - General 09/24/18
--- OUTSIDE RECORDS SUMMARY | 2024-09-22 12:37 | XMS_ITS | Clinical Summary ---
Author Organization [facility] Address [address] [place] [address] Care Team Providers Care Correction Officer Reformatory Name Role Phone Abdiel Chavez M.D. Primary Care Jose rodriguez Source Comments Patient records contain information from all sites at [facility]. For routine questions regarding patient records, call [phone] during business hours, M-F 8:00 AM - 5:00 PM Central Time. Record requests for emergency care only can be directed to [phone] at any time.[facility] Allergies Active Allergy Reactions Criticality Noted Date Comments Indomethacin Other (see comments) 04/03/2013 Urine retention Tramadol Other (see comments) High 09/06/2021 Medications * This document contains information received from the source organization and may not represent a complete record from that organization. DME CPAPIndications: Apnea Sleep Obstructive DME Order 1 each 11 3 Active Additional Information Patient not taking.Reported on 10/21/2022 cyclobenzaprine (FLEXERIL) 10 mg tablet Take 1 tablet (10 mg total) by mouth 3 (three) times a day as needed for muscle spasms. 60 tablet 2 3 Active predniSONE (DELTASONE) 20 mg tabletIndication s:Gout Take 3 tabs (60 mg) daily for 3 days, then take 2 tabs (40 mg) daily for 3 days, then take 1 tab (20 mg) daily for 3 days. 18 tablet 1 4 Active lisinopriL (PRINIVIL,ZESTRI L) 20 mg tabletIndication s:Hypertension Essential Primary Take 1 tablet (20 mg total) by mouth daily. 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 Not yet interested in a sleep study. Primary Osteoarthritis Left Ankle And Foot 02/07 Other Intervertebral Disc Displacement Lumbar Re gion 03/22/2014 Gout 03/15/2014 Hypertension Essential Primary 03/14/2014 Overview (02/10/2023): Cannot take thiazides due to gout. Didn't respond to metoprolol. Thinks amlodipine made blood pressure higher, but didn't have true allergy. Encounters Date Type Department Care Team Description 08/29/2024 Orders Only [facility] MNT Abdiel Chavez M.B.B.S., MDanni. Screening Examination Diabetes Mellitus; Monitoring For Therapeutic Drug Therapy from Last 3 Months Immunizations Immunization Administration Dates Next Due DTaP (Infanrix, Tripedia) 04/05/1985,10/05/1984 MMR 10/05/1984 Polio, Unspecified 10/05/1984 SARS-COV-2 (COVID-19) - PFIZ ER (Discontinued)(12 years or older) 02/10/2023(Deferred: Patient decision) Td (Adult), adsorbed 03/13/2010 Tdap 12/18/2015 influenza vaccine quad (FLUZONE/FLUARIX) (6 months and older)(PF) 09/14/2022(Deferred: Patient decision) Family History Medical History Relation Name Comments Gout Father Colon cancer Maternal Grandfather Ovarian cancer Maternal Grandmother Hypertension Mother Hypertension Sister Melanoma Uncle 1 Colon cancer Uncle 2 Bone cancer Uncle 3 Relation Name Status Comments Father Maternal Grandfather Maternal Grandmother Mother Sister Uncle 1 Uncle 2 Uncle 3 Social History Tobacco Use Types Packs/Day Years Used Date Smoking Tobacco: Never Smokeless Tobacco: Never Tobacco Cessation:Counseling Given: Not Answered Alcohol Use Standard Drinks/Week Comments Yes 0 (1 standard drink = 0.6 oz pur e alcohol) Humiliation, Afraid, Rape, and Kick questionnair e Answer Date Recorded Within the last year, have y ou been afraid of your partner or ex-partner? No 06/11/2021 Within the last year, have y ou been humiliated or emotionally abused in other ways by your partner or ex-partner? No Within the last year, have y ou been kicked, hit, slapped, or otherwise physically hurt by your partner or ex-partner? No 06/11/2021 Within the last year, have y ou been raped or forced to have any kind of sexual activity by your partner or ex-partner? No 06/11/2021 Social Connection and Isolat ion Panel [NHANES] Answer Date Recorded In a typical week, how many times do you talk on the phone with family, friends, or neighbors? More than three times a week 06/11/2021 How often do you get togethe r with friends or relatives? More than three times a week 06/11/2021 How often do you attend chur ch or judaism services? Never 06/11/2021 Do you belong to any clubs o r organizations such as holiness groups, unions, fraternal or athletic groups, or school groups? No 06/11/2021 How often do you attend meet ings of the clubs or organizations you belong to? Never 06/11/2021 Are you , , di vorced, , never , or living with a partner? Living with partner 06/11/2021 AUDIT-C Answer Date Recorded Q1: How often do you have a drink containing alc ohol? Never 06/11/2021 Average Number of Drinks Not on file 021 Frequency of Binge Drinking Not on file 05/28 Overall Financial Resource Strain (CARDIA) Answe r Date Recorded How hard is it for you to pa y for the very basics like food, housing, medical care, and heating? Not hard at all 06/11/2021 PHQ-2 Answer Date Recorded PHQ-2 Score 0 11/01/2023 [facility] Occupational Stress Questionnaire Answer Date Recorded Do you feel stress - tense, restless, nervous, or anxious, or unable to sleep at night because your mind is troubled all the time - these days? Not at all 06/11/2021 Exercise Vital Sign Answer Date Recorde d On average, how many days pe r week do you engage in moderate to strenuous exercise (like a brisk walk)? 0 days 06/11/2021 On average, how many minutes do you engage in exercise at this level? 0 min 06/11/2021 Hunger Vital Sign Answer Date Recorded Within the past 12 months, y ou worried that your food would run out before you got the money to buy more. Never true 06/11/20 21 Within the past 12 months, t he food you bought just didn't last and you didn't have money to get more. Never true 06/11/2021 PRAPARE - Transportation Answer Date Re corded In the past 12 months, has l ack of transportation kept you from medical appointments or from getting medications? No 05/28 In the past 12 months, has l ack of transportation kept you from meetings, work, or from getting things needed for daily living? No 06/11/2021 Housing Stability Vital Sign Answer Wally e Recorded In the last 12 months, was t here a time when you were not able to pay the mortgage or rent on time? No 06/11/2021 In the last 12 months, how many places have you lived? 2 06/11/2021 In the last 12 months, was t here a time when you did not have a steady place to sleep or slept in a snf (including now)? No 06/11/2021 Depression Answer Date Recor ded PHQ-9 Total Score (max 27) 8 09/14 Nutrition Answer Date Recorded On average, how many serving s of fruits and vegetables do you eat per day (serving size is equal to 1 cup or approximately the size of a tennis ball)? 0-1 06/11/2021 Dental Answer Date Recorded Dental: Regular Dentist Unknown 06/16/20 24 Employment Answer Date Recorded Employment status Employed but not working due t o illness or injury 06/11/2021 Education Answer Date Recorded What is the highest level of school you have completed or the highest degree you have received? 12th grade 01/18/2019 Sex and Gender Information Value Date Recorded Sex Assigned at Male 01/20/2022 8:02 AM CDT Legal Sex Male 9:03 AM CDT Gender Identity Male 01/20/2022 8:02 AM CDT Sexual Orientation Straight 01/20/2022 8: 02 AM CDT Last Filed Vital Signs Vital Sign Reading Time Taken Comments Blood Pressure 128/80 11/15/2023 8:33 AM CDT Pulse 83 11/15/2023 8:33 AM CDT Temperature 36.4 C (97.6 F) 11/01/2023 8:50 AM CDT Respiratory Rate 20 11/01/2023 8:50 AM CDT Oxygen Saturation 96% 08/19/2022 9:30 AM JOB SERVICE SPECIALIST room air Inhaled Oxygen Concentration - - Weight 153 kg (336 lb 10.3 oz) 11/01/2023 8:50 A M CDT Height 176.5 cm (5' 9.49) 11/01/2023 8:50 AM CD T Body Mass Index 49.02 11/01/2023 8:50 AM CDT Plan of Treatment Health Maintenance Due Date Last Done Comments CT Colonography 1979 Cologuard 1979 Colonoscopy 1979 Colorectal Cancer Screening 1979 FIT 1979 HIV Screening 1979 Hepatitis C Screening 1979 IPV Vaccines (2 of 3 - 4-dose series) 11/02/1984 10/05/1984 Hepatitis B Vaccines (1 of 3 - 19+ 3-dose series) 1998 COVID-19 Vaccine ( season) 2024 Influenza Vaccine (#1) 2024 Depression Screening (Annual PHQ-2) 06/28/2024 Creatinine Level (Kidney Function Test) 10/31/2024 11/01/2023, 07/16/2023, 08/07/2022, Additional history exists Fasting Glucose for Diabetes Screening 10/31/2024 11/01/2023, 11/01/2023, 07/16/2023, Additional history exists Potassium Level 10/31/2024 11/01/2023, 06/28, 08/07/2022, Additional history exists Sodium Level 10/31/2024 11/01/2023, 06/28, 08/07/2022, Additional history exists Visit: Chronic Disease, age 18+ 10/31/2024 11/01/2023 Office Visit for Blood Pressure Check / Re-check 11/14/2024 11/15/2023 DTaP,Tdap,and Td Vaccines (4 - Td or Tdap) 12/17/2025 12/18/2015, 03/13/2010, 04/05/1985, Additional history exists Lipid (Cholesterol) Screening 10/31/2028 11/01/2023, 11/10/2021, 08/20/2020 HPV Vaccines Aged Out No longer eligi ble based on patient's age to complete this topic Pneumococcal vaccine (0-49 years) Aged Out No longer eligible based on patient's age to complete this topic Procedures Procedure Name Priority Date/Time Associated Diagnosis Comments LIPID PANEL, S Routine 11/01/2023 10:05 AM CDT Screening Test Laboratory COMPREHENSIVE METABOLIC PANEL, S/P Routine 11/01/2023 10:05 AM CDT Hypertension Essential Primary from Last 3 Months or Most Recently Relevant to Health Maintenance Results * (ABNORMAL) Lipid Panel (11/01/2023 10:05 AM CDT) Triglycerides 138 mg/dL 11/01/2023 2:00 PM CDT OWAT Comment: ----REFERENCE VALUE---- Normal: <150 mg/dL Borderline High: 150-199 mg/dL High: 200-499 mg/dL Very High: > or =500 mg/dL Cholesterol, Total 214(H) mg/dL 2023 2:00 PM CDT OWAT Comment: ----REFERENCE VALUE---- Desirable: < 200 mg/dL Borderline High: 200 - 239 mg/dL High: > or = 240 mg/dL Cholesterol, LDL, Calculated 154(H) mg/dL 11/01/2023 2:00 PM CDT OWAT Comment: ----REFERENCE VALUE---- Desirable: <100 mg/dL Above Desirable: 100-129 mg/dL Borderline High: 130-159 mg/dL High: 160-189 mg/dL Very High: >=190 mg/dL ----ADDITIONAL INFORMATION---- LDL cholesterol calculated using the Kemp/NIH equation. Cholesterol, HDL 35(L) >=40 mg/dL 11/01/19 2:00 PM CDT OWAT Cholesterol, Non-HDL, Calculated 179(H) mg/dL 11/01/2023 2:00 PM CDT OWAT Comment: ----REFERENCE VALUE---- Desirable: <130 mg/dL Above Desirable: 130-159 mg/dL Borderline High: 160-189 mg/dL High: 190-219 mg/dL Very High: > or =220 mg/dL Fasting (8 HR or more) Yes 11/01/2023 1:20 PM CDT OWAT Blood (Blood, Venous) 11/01/2023 10:05 AM CDT 11/01/2023 1:20 PM CDT us Abdiel Carson M.D. LAB BLOOD ADD-O N Final Result [facility] [address] [address], [facility] OWAT [facility] [place] [address], [place] [address] * (ABNORMAL) Comprehensive Metabolic Panel (11/01/2023 10:05 AM CDT) Potassium, P 4.7 3.6 - 5.2 mmol/L 11/01/2023 2:00 PM CDT OWAT Sodium, P 138 135 - 145 mmol/L 11/01/2023 2:00 PM CDT OWAT Chloride, P 102 98 - 107 mmol/L 11/01/2023 2:00 PM CDT OWAT Bicarbonate, P 21(L) 22 - 29 mmol/L 11/01/2023 2:00 PM CDT OWAT Anion Gap, P 15 7 - 15 11/01/2023 2:00 PM CDT OWAT BUN (Blood Urea Nitrogen), P 17 8 - 24 mg/dL 11/01/2023 2:00 PM CDT OWAT Creatinine 0.84 0.74 - 1.35 mg/dL 11/01/2023 2:00 PM CDT OWAT Estimated GFR (eGFR) >90 >=60 mL/min/BS A 11/01/2023 2:00 PM CDT OWAT Comment: Estimated GFR calculated using the 2020 CKD_EPI creatinine equation. Calcium, Total, P 9.2 8.6 - 10.0 mg/dL 11/01/2023 2:00 PM CDT OWAT Glucose, P 121 70 - 140 mg/dL 11/01/2023 2:00 PM CDT OWAT Protein, Total, P 7.3 6.3 - 7.9 g/dL 11/01/2023 2:00 PM CDT OWAT Albumin, P 4.2 3.5 - 5.0 g/dL 11/01/2023 2:00 PM CDT OWAT Alkaline Phosphatase, P 84 40 - 129 U/L 11/01/2023 2:00 PM CDT OWAT Alanine Aminotransferase (ALT), P 28 7 - 55 U/L 11/01/2023 2:00 PM CDT OWAT Bilirubin, Total, P 0.5 0.0 - 1.2 mg/dL 11/01/2023 2:00 PM CDT OWAT Blood (Blood, Venous) 11/01/2023 10:05 AM CDT 11/01/2023 1:20 PM CDT us Abdiel Carson M.D. LAB BLOOD ADD-O N Final Result [facility] [address] [place] [address], [place] OWAT [facility] [place] [address] [place] [address] from Last 3 Months or Most Recently Relevant to Health Maintenance Insurance [facility] [employer] Care Teams Correction Officer Reformatory Relationship Specialty Start Date End Date Abdiel Chavez M.B.BJeremiasSJeremias, M.Stevenson. [address] [place] [address] [place] [phone] PCP - General Family Medicine 01/18/19
--- OUTSIDE RECORDS SUMMARY | 2024-09-22 12:37 | XMS_ITS | Encounter Summary ---
Author Organization [facility] Address [address] [place] [address] Care Team Providers Care Deputy Court Clerk Name Role Phone Abdiel Chavez M.D. Primary Care P michael Reason for Referral * Outpatient (Routine) - Authorized Specialty Diagnoses / Procedures Referred By Contac t Referred To Contact Abdiel Chavez M.B.B.S., M.D. [address] [place] [address] Phone: tel: fax: [facility] Region Referral ID Status Reason Start Date Expiration Date V isits Requested Visits Authorized [id number] Authorized 08/29/2024 02/28/2026 1 1 NG CAR HOP Encounter Details Date Type Department Care Team (Late st Contact Info) Description 08/29/2024 Orders Only [facility] MNT Abdiel Chavez M.B.B.S., M.D. [address] [place] [address] Screening Examination Diabetes Mellitus; Monitoring For Therapeutic Drug Therapy Social History Tobacco Use Types Packs/Day Years Used Date Smoking Tobacco: Never Smokeless Tobacco: Never Alcohol Use Standard Drinks/Week Comments Yes 0 [...] week 06/11/2021 How often do you attend [facility] or voodoo services? Never 06/11/2021 Do you belong to any clubs o r organizations such as buddhist groups, unions, fraternal or athletic groups, or [...] Answer Date Recorded PHQ-2 Score 0 11/01/2023 [facility] [place] - Occupational Stress Questionnaire Answer Date Recorded [...] place to sleep or slept in a [place] health care facility (including now)? No 06/11/2021 Depression Answer Date Recor ded PHQ-9 Total Score (max 27) 8 09/14 Nutrition Answer Date Recorded On average, how many serving s of fruits and vegetables do you eat per day (serving size is equal to 1 cup or approximately the size of a tennis ball)? 0-1 06/11/2021 Dental Answer Date Recorded Dental: Regular Dentist Unknown 06/16/20 Employment Answer Date Recorded Employment status Employed [...] Orientation Straight 01/20/2022 8: 02 AM CDT documented as of this encounter Plan of Treatment Scheduled Orders Name Type Priority Associated Diagnoses Orde r Schedule Glucose, Fasting Lab Routine Screening Examination Diabetes Mellitus Expected: 09/12/2024, Expires: 02/15/2025 Basic Metabolic Panel Lab Routine Monitoring For Therapeutic Drug Therapy Expected: 09/12/2024, Expires: 02/15/2025 Scheduled Referrals Name Type Priority Associated Diagnoses Orde r Schedule Primary Care nurse visit (clinic) - [facility]; BP check; BP check only (ROLLER VARNISHER) Outpatient Referral Routine Expected: 09/12/2024, Expires: 02/15/2025 documented as of this encounter Visit Diagnoses Diagnosis Screening Examination Diabetes Mellitus Monitoring For Therapeutic Drug Therapy documented in this encounter Additional Health Concerns Assessment Noted Time PHQ-9 Depression Total Score: 8 09/15/19 23 11:42 AM CDT documented as of this encounter Care Teams Deputy Court Clerk Relationship Specialty Start Date End Date Abdiel Chavez M.B.B.S., MDanni. [address] [place] [phone] PCP - General Family Medicine 01/18/19 documented as of this encounter
--- NOTE | 2024-09-22 13:13 | CRLHL7_ITS ---
For Patients: As a result of the Century Cures Act, medical imaging exams and procedure reports are released immediately into your electronic medical record. You may view this report before your referring provider. If you have questions, please contact your health care provider. INDICATION: AFib. TECHNIQUE: Chest 1 views. COMPARISON: None. FINDINGS/IMPRESSION: No focal consolidation, effusion or pneumothorax. Cardiac size is within normal limit without pulmonary edema. No acute osseous findings. Dictated by Griselda Miller MD @ 09/22/2024 2:15:46 PM (Electronically Signed)
[2024-09-22 13:38] LABS: Lactate Sepsis w/Reflex* 1.1 mmol/L (0.5-1.9)
--- OUTSIDE RECORDS SUMMARY | 2024-09-22 13:38 | XMS_ITS | Clinical Summary ---
Author Organization [facility] Address [address] [place] [address] Care Team Providers Care Pressure Steamer Tender Name Role Phone Abdiel Chavez MD Primary Care Provider [phone] Allergies Active Allergy Reactions Criticality Noted Date [...] Comments Blood Pressure 141/99 07/16/2023 12:22 PM SECURITY VEHICLE PATROL OFFICER Pulse 97 07/16/2023 12:22 PM SECURITY VEHICLE PATROL OFFICER Temperature 36.3 C (97.4 F) 07/16/2023 11:12 AM SECURITY VEHICLE PATROL OFFICER Respiratory Rate 22 07/16/2023 11:12 AM SECURITY VEHICLE PATROL OFFICER Oxygen Saturation 100% 07/16/2023 12:23 PM SECURITY VEHICLE PATROL OFFICER Inhaled Oxygen Concentration - - Weight 133.8 kg (295 lb) 07/16/2023 11:12 AM SECURITY VEHICLE PATROL OFFICER Height 175.3 cm (5' 9) 06/18/2022 9:00 AM SECURITY VEHICLE PATROL OFFICER Body Mass Index 43.56 06/18/2022 9:00 AM SECURITY VEHICLE PATROL OFFICER Plan of Treatment Health Maintenance Due Date [...] this topic Medical Devices Implanted Type Area Electronics Department Manager Device Identifier Shelf Expiration Date Model / Serial / Lot Button Suture Repair Large Ti F/Pectoralis Major - [id number] Implanted:Qty : 1 on 06/24/2022 by Maykel Sexton MD at [facility] Metallic Hardware/Anc hor Right: Shoulder [employer] 02/25/2026 AR-2267 / / [id number] Button Suture Repair Large Ti F/Pectoralis Major - [id number] Implanted:Qty : 2 on 06/24/2022 by Maykel Sexton MD at [facility] Metallic Hardware/Anc hor Right: Shoulder AR[employer]REX 09/25/2025 AR-2267 / / [id number] Procedures Procedure Name Priority Date/Time Associated Diagnosis Comments BASIC METABOLIC PANEL STAT 07/16/2023 11:52 AM SECURITY VEHICLE PATROL OFFICER from Last 3 Months or Most Recently Relevant to Health Maintenance Results * (ABNORMAL) Basic metabolic panel (BMP) (07/16/2023 11:52 AM SECURITY VEHICLE PATROL OFFICER) [facility] Sodium 139 135 - 145 mmol/L 07/16/2023 12:45 PM SECURITY VEHICLE PATROL OFFICER [facility] Comment:Reference intervals for this test were updated on 03/23/2023 to more accurately reflect our healthy population. There may be differences in the flagging of prior results with similar values performed with this method. Interpretation of those prior results can be made in the context of the updated reference intervals. Potassium 4.0 3.4 - 5.3 mmol/L 07/16/2023 12:45 PM SECURITY VEHICLE PATROL OFFICER [facility] Chloride 101 98 - 107 mmol/L 07/16/2023 12:45 PM SECURITY VEHICLE PATROL OFFICER [facility] Carbon Dioxide (CO2) 25 22 - 29 mmol/L 07/16/2023 12:45 PM SECURITY VEHICLE PATROL OFFICER [facility] Anion Gap 13 7 - 15 mmol/L 07/16/2023 12:45 PM SECURITY VEHICLE PATROL OFFICER [facility] Urea Nitrogen 13.7 6.0 - 20.0 mg/dL 07/16/2023 12:45 PM SECURITY VEHICLE PATROL OFFICER [facility] Creatinine 0.84 0.67 - 1.17 mg/dL 07/16/2023 12:45 PM SECURITY VEHICLE PATROL OFFICER LABORATORY GFR Estimate >90 >60 mL/min/1. 73m2 07/16/2023 12:45 PM SECURITY VEHICLE PATROL OFFICER LABORATORY Calcium 9.6 8.6 - 10.0 mg/dL 07/16/2023 12:45 PM SECURITY VEHICLE PATROL OFFICER LABORATORY Glucose 145(H) 70 - 99 mg/dL 07/16/2023 12:45 PM SECURITY VEHICLE PATROL OFFICER LABORATORY Blood STRUCTURE OF LEFT HAND / Unknown Venipuncture / Unknown 07/16/2023 11:52 AM SECURITY VEHICLE PATROL OFFICER 07/16/2023 12:21 PM SECURITY VEHICLE PATROL OFFICER us Jamshid Husain MD LAB - BLOOD ORDERABLES Final Res ult LABORATORY [facility] [address] [facility] (1st floor, no room number) [place] [address], [facility] [phone] from Last 3 Months or Most Recently Relevant to Health Maintenance Insurance BCBS OUT OF STATE BCBS OUT OF STATE [place] JOHNSON Advance Directives For more information, please contact: [phone] * Full Code (Latest Code Status on File) Date Activated Date Inactivated Comments 06/24/2022 10:35 PM 06/25/2022 1:02 PM All basic and advanced life-sustaining interventions are performed as appropriate Question Answer Comments Code status determined by: Discussion with lynne nt/ legal decision maker Care Teams Pressure Steamer Tender Relationship Specialty Start Date End Date Abdiel Chavez MD [address] [place], [place] [address]wei ROE KAYY [phone] PCP - General 07/16/23
--- OUTSIDE RECORDS SUMMARY | 2024-09-22 13:38 | XMS_ITS | Clinical Summary ---
Author Organization [facility] Address [address] [place] [address] Care Team Providers Care Pocket Grinder Operator Name Role Phone Pcp, No Primary Care [...] on file Legal Sex Male 8:07 AM MOTION PICTURE PHOTOGRAPHER Gender Identity Not on file Sexual Orientation Not on file 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 on file Not on file Not on file Obstetrics History Last Filed Vital Signs Vital Sign Reading Time Taken Comments Blood Pressure 163/93 08/30/2018 10:26 AM MOTION PICTURE PHOTOGRAPHER Pulse 100 08/30/2018 10:26 AM MOTION PICTURE PHOTOGRAPHER Temperature 38.4 C (101.1 F) 08/30/2018 10:26 AM MOTION PICTURE PHOTOGRAPHER Respiratory Rate 20 01/26/2018 1:33 PM CDT Oxygen Saturation 97% 08/30/2018 10:26 AM MOTION PICTURE PHOTOGRAPHER Inhaled Oxygen Concentration - - Weight 136.5 kg (301 lb) 08/30/2018 10:26 AM MOTION PICTURE PHOTOGRAPHER Height 176 cm (5' 9.29) 08/30/2018 10:26 AM MOTION PICTURE PHOTOGRAPHER Body Mass Index 44.08 08/30/2018 10:26 AM MOTION PICTURE PHOTOGRAPHER Plan of Treatment Health Maintenance Due Date [...] - 199 mg/dL 03/14/2014 3:32 PM CDT [facility] TRIGLYCERIDES 522(H) <150 mg/dL 03/14/2014 3:32 PM CDT [facility] HDL CHOLESTEROL 29(L) >40 mg/dL 4 3:32 PM CDT [facility] NON-HDL CHOLESTEROL 145(H) <145 mg/dl 03/14/2014 3:32 PM CDT [facility] CHOL/HDL RATIO 6.00(H) <4.50 03/14/2014 3:32 PM CDT [facility] LDL CHOLESTEROL 4 3:32 PM CDT [facility] Comment:Invalid LDL when Tri g >400, reflexed to measured LDL PATIENT STATUS FASTING 03/14/2014 3:32 PM CDT [facility] Blood specimen (specimen) BLOOD SPECIMEN / Unknown Venipuncture / Unknown 03/14/2014 2:39 PM CDT 03/14/2014 2:40 PM CDT us Nicole Chinchilla MD CHEMISTRY Shahnaz l Result [facility] [address] [place] [address], [place] [phone] from Last 3 Months or Most Recently Relevant to Health Maintenance Advance Directives * Full Code (Latest Code Status on File) Date Activated Date Inactivated Comments 05/03/2014 2:04 PM 05/04/2014 5:00 PM * Full Code Date Activated Date Inactivated Comments 05/03/2014 8:00 AM 05/03/2014 2:04 PM Care Teams Pocket Grinder Operator Relationship Specialty Start Date End Date Pcp, No . PCP - General 09/24/18
--- OUTSIDE RECORDS SUMMARY | 2024-09-22 13:39 | XMS_ITS | Clinical Summary ---
Author Organization [facility] Address [address] [place] [address] Care Team Providers Care Water Conservationist Name Role Phone Abdiel Chavez M.D. Primary Care Jose rodriguez Source Comments Patient records contain information from all sites at [facility]. For routine questions regarding patient records, call [phone] during business hours, M-F 8:00 AM - 5:00 PM Central Time. Record requests for emergency care only can be directed to [phone] at any time.[facility] Allergies Active Allergy Reactions Criticality Noted Date [...] often do you attend chur ch or catholic services? Never 06/11/2021 Do you belong to any clubs o r organizations such as zoroastrian groups, unions, fraternal or athletic groups, or [...] Answer Date Recorded PHQ-2 Score 0 11/01/2023 [facility] - Occupational Stress Questionnaire Answer Date Recorded [...] place to sleep or slept in a mcfp (including now)? 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 LAB BLOOD ADD-O N Final Result [facility] [address] [address], [facility] [place] [address] [address] * (ABNORMAL) Comprehensive Metabolic Panel (11/01/2023 10:05 [...] M.D. LAB BLOOD ADD-O N Final Result [facility] [address] [place] [address], [place] [facility] [place] [address] [place] [address] from Last 3 Months or Most Recently Relevant to Health Maintenance Insurance [facility] [employer] Care Teams Water Conservationist Relationship Specialty Start Date End Date Abdiel Chavez M.B.BJeremiasSJeremias, M.Stevenson. [address] [place] [address] [place] [id number] PCP - General Family Medicine 01/18/19
--- OUTSIDE RECORDS SUMMARY | 2024-09-22 13:39 | XMS_ITS | Encounter Summary ---
Author Organization [facility] Address [address] [place] [address] Care Team Providers Care Heading Maker Name Role Phone bAdiel Chavez M.D. Primary Care P michael Reason for Referral * Outpatient (Routine) - Authorized Specialty Diagnoses / Procedures Referred By Contac t Referred To Contact Abdiel Chavez M.B.B.S., M.D. [address] [place] [address] Phone: tel: fax: [facility] Region Referral ID Status Reason Start Date Expiration Date V isits Requested Visits Authorized [id number] Authorized 08/29/2024 02/28/2026 1 1 ENT SERVICES COUNSELOR Encounter Details Date Type Department Care Team (Late st Contact Info) Description 08/29/2024 Orders Only [facility] Abdiel Chavez M.B.B.S., M.D. [address] [place] [address] Screening Examination Diabetes Mellitus; Monitoring [...] week 06/11/2021 How often do you attend [facility] or oriental orthodox services? Never 06/11/2021 Do you belong to any clubs o r organizations such as congregational groups, unions, fraternal or athletic groups, or [...] Answer Date Recorded PHQ-2 Score 0 11/01/2023 [facility] [place] [facility] - Occupational Stress [...] place to sleep or slept in a correction (including now)? No 06/11/2021 Depression Answer Date [...] Schedule Primary Care nurse visit (clinic) - [facility]; BP check; BP check only (MINING HELPER) Outpatient Referral Routine Expected: 09/12/2024, Expires: 02/15/2025 documented as of this encounter Visit Diagnoses Diagnosis Screening Examination Diabetes Mellitus Monitoring For Therapeutic Drug Therapy documented in this encounter Additional Health Concerns Assessment Noted Time PHQ-9 Depression Total Score: 8 09/15/19 23 11:42 AM CDT documented as of this encounter Care Teams Heading Maker Relationship Specialty Start Date End Date Abdiel Chavez M.B.B.S., MDanni. [address] [place] [phone] PCP - General Family Medicine 01/18/19 documented as of this encounter
[2024-09-22 13:46] LABS: Basophils Percent Auto 0.4 % (0.0-3.0); Eosinophils Percent Auto 0.4 % (0.0-7.0); Hematocrit 47.9 % (37.0-53.0); Hemoglobin* 15.7 gm/dL (13.5-17.5); Immature Granulocytes Pct Auto 0.9 %; Lymphocytes Percent Auto 27.6 % (20-44); Mean Corpuscular HGB Conc 33 gm/dL (32-36); Mean Corpuscular Hemoglobin 30 pg (26-34); Mean Corpuscular Volume 93 fL (80-100); Monocytes Percent Auto 8.3 % (0.0-11.0); Neutrophils Percent Auto 62.4 % (42.0-72.0); Platelet Count* 281 K/uL (140-440); RDW Coefficient of Variation % 13.6 % (11.5-15.5); Red Blood Count 5.17 m/uL (4.30-5.90); White Blood Count* 11.14 K/uL (4.50-11.00)
[2024-09-22 13:56] LABS: Chloride* 106 mmol/L (96-114); Potassium* 3.9 mmol/L (3.6-5.1); Sodium* 141 mmol/L (135-149)
[2024-09-22 13:58] LABS: Slide Review Reflex No
[2024-09-22 13:59] LABS: Alanine Aminotransferase* 32 U/L (4-50); Alkaline Phosphatase* 74 U/L (40-150); Anion Gap 6 mEq/L (7-15); Aspartate Amino Transferase* 28 U/L (12-35); Bilirubin Total* 0.7 mg/dL (0.1-1.5); Blood Urea Nitrogen* 24 mg/dL (5-24); Carbon Dioxide* 29 mmol/L (20-32); Estimated Glomerular Filt Rate 95 ml/min; Total Protein* 6.7 g/dL (6.0-8.3)
[2024-09-22 14:00] LABS: Glucose* 113 mg/dL (60-115); Magnesium* 2.2 mg/dL (1.5-2.6)
[2024-09-22] MEDS: dilTIAZem 5 MG/ML inj 20 MG IVP ×2 (14:03→14:51)
--- NOTE | 2024-09-22 14:08 | ED.GENADULT ---
HPI - General Adult General Date Seen: 09/22/24 Chief complaint: Arrhythmia/Palpitations Stated complaint: Irregular heartrate Time Seen by Provider: 09/22/24 13:13 History of Present Illness HPI narrative: Patient is a 44-year-old male here for evaluation of palpitations which started last night. He denies prior history of this. He does note that 5 days ago, on Wednesday, he had an entire day where he had very bad what he thought was heartburn. He says he was eating times all day but it did not improve. He finally went to bed at night and when he woke up the next day it felt better. He does not recall palpitations at that time but he says honestly it was hurting so much that he does not think he would have noticed. Aside from that he has not had prior chest pain or palpitations. Does not have a history of prior heartburn. He denies tobacco alcohol use. He notes that he has not been to a doctor in quite some time, does say he has a history of hypertension was prescribe something for it a long time ago but does not take it because he feels that it makes his blood pressure too low. Denies other medical history. Related Data Previous Rx's ?Medication ?Instructions ?Recorded apixaban 5 mg tablet (Eliquis) 5 mg PO BID #60 tabs 09/22/24 metoprolol succinate 50 mg 50 mg PO BID #60 tabs 09/22/24 tablet,extended release 24 hr Allergies Allergy/AdvReac Type Severity Reaction Status Date / Time indomethacin Allergy Intermediate Verified 09/22/24 12:52 colchicine Allergy Unknown Verified 09/22/24 12:52 Review of Systems Status of ROS: Reports: 10 or more systems reviewed and unremarkable except as noted in History and [facility] History History of elbow surgery (09/28/13) ?Z98.890 - Other specified postprocedural states (ICD-10) Social History Smoking Status: Never smoker Do you use any of these nicotine containing products: None Second hand tobacco smoke exposure: No How often do you have a drink containing alcohol: never How often do you have six or more drinks on one occasion: Never AUDIT-C Alcohol total score: 0 Non-prescribed substance use: denies use service: Yes Exam Narrative: Exam Narrative: Vital signs reviewed In general, alert, nontoxic mid age male. Head: Normocephalic, atraumatic. Eyes: Sclera clear. Pupils equal and reactive. ENT: Mucous membranes moist. Neck: Supple without adenopathy. Heart: Tachycardic and irregular, no significant murmur. Lungs: Clear. No increased work of breathing, crackles or wheezes. Abdomen: Significant abdominal obesity, nontender to palpation. Extremities: Well perfused, pulses intact. No significant edema. Neurologic: Alert, conversant. Speech fluent, face symmetric. Moves all extremities equally. Skin: Slightly diaphoretic, warm. Well perfused. Affect: Normal. Const: Vital Signs, click to edit/add: Vital Signs - 24 hr 09/22/24 12:56 09/22/24 13:01 09/22/24 13:03 Temperature 96.9 F L Pulse Rate 108 H 124 H Pulse Rate [Pulse Oximeter] 120 H Respiratory Rate 8 L 19 Blood Pressure 149/139 H Blood Pressure [Ri ght Forearm] Pulse Oximetry 96 94 94 Oxygen Delivery Me thod Room Air 09/22/24 13:11 09/22/24 13:15 09/22/24 13:30 Temperature Pulse Rate 145 H 117 H Pulse Rate [Pulse Oximeter] Respiratory Rate 12 22 19 Blood Pressure 167/132 H Blood Pressure [Ri ght Forearm] Pulse Oximetry 95 94 Oxygen Delivery Me thod 09/22/24 13:35 09/22/24 13:45 09/22/24 13:49 Temperature Pulse Rate Pulse Rate [Pulse Oximeter] Respiratory Rate 13 14 15 Blood Pressure Blood Pressure [Ri ght Forearm] Pulse Oximetry Oxygen Delivery Me thod 09/22/24 14:03 09/22/24 14:06 09/22/24 14:11 Temperature Pulse Rate 151 H 109 H Pulse Rate [Pulse Oximeter] Respiratory Rate 17 14 17 Blood Pressure 174/151 H 172/112 H Blood Pressure [Ri ght Forearm] Pulse Oximetry 93 95 Oxygen Delivery Me thod 09/22/24 14:15 09/22/24 14:18 09/22/24 14:18 Temperature Pulse Rate 98 100 Pulse Rate [Pulse Oximeter] Respiratory Rate 19 18 Blood Pressure 159/118 H Blood Pressure [Ri ght Forearm] 159/118 H Pulse Oximetry 96 93 Oxygen Delivery Me thod 09/22/24 14:19 09/22/24 14:22 09/22/24 14:27 Temperature Pulse Rate 90 77 82 Pulse Rate [Pulse Oximeter] Respiratory Rate 22 21 13 Blood Pressure 159/126 H 155/118 H Blood Pressure [Ri ght Forearm] Pulse Oximetry 92 94 95 Oxygen Delivery Me thod 09/22/24 14:30 09/22/24 14:33 09/22/24 14:34 Temperature Pulse Rate 105 H 89 100 Pulse Rate [Pulse Oximeter] Respiratory Rate 8 L 19 12 Blood Pressure 188/112 H Blood Pressure [Ri ght Forearm] Pulse Oximetry 95 93 94 Oxygen Delivery Me thod 09/22/24 14:37 09/22/24 14:42 09/22/24 14:45 Temperature Pulse Rate 95 119 H Pulse Rate [Pulse Oximeter] Respiratory Rate 10 L 13 11 L Blood Pressure 163/123 H 156/113 H Blood Pressure [Ri ght Forearm] Pulse Oximetry 96 92 Oxygen Delivery Me thod 09/22/24 14:47 09/22/24 14:52 09/22/24 14:58 Temperature Pulse Rate 116 H 106 H 93 Pulse Rate [Pulse Oximeter] Respiratory Rate 13 6 L 12 Blood Pressure 122/107 H 121/110 H 162/99 H Blood Pressure [Ri ght Forearm] Pulse Oximetry 90 93 91 Oxygen Delivery Me thod 09/22/24 14:59 09/22/24 15:00 09/22/24 15:02 Temperature Pulse Rate 84 93 80 Pulse Rate [Pulse Oximeter] Respiratory Rate 23 Blood Pressure Blood Pressure [Ri ght Forearm] Pulse Oximetry 92 89 92 Oxygen Delivery Me thod 09/22/24 15:07 09/22/24 15:15 09/22/24 15:18 Temperature Pulse Rate 67 107 H 107 H Pulse Rate [Pulse Oximeter] Respiratory Rate 9 L Blood Pressure 169/140 H 116/64 Blood Pressure [Ri ght Forearm] Pulse Oximetry 92 93 93 Oxygen Delivery Me thod 09/22/24 15:22 09/22/24 15:29 09/22/24 15:30 Temperature Pulse Rate 81 97 85 Pulse Rate [Pulse Oximeter] Respiratory Rate 0 L 0 L 0 L Blood Pressure 119/96 H 136/102 H Blood Pressure [Ri ght Forearm] Pulse Oximetry 92 95 95 Oxygen Delivery Me thod 09/22/24 15:32 09/22/24 15:33 09/22/24 15:37 Temperature Pulse Rate 99 98 Pulse Rate [Pulse Oximeter] Respiratory Rate 6 L Blood Pressure 134/93 H Blood Pressure [Ri ght Forearm] Pulse Oximetry 93 94 92 Oxygen Delivery Me thod 09/22/24 15:45 09/22/24 15:46 09/22/24 15:47 Temperature Pulse Rate 102 H 72 77 Pulse Rate [Pulse Oximeter] Respiratory Rate 21 Blood Pressure 160/102 H 167/101 H Blood Pressure [Ri ght Forearm] Pulse Oximetry 95 95 95 Oxygen Delivery Me thod 09/22/24 16:00 09/22/24 16:02 09/22/24 16:15 Temperature Pulse Rate 83 70 77 Pulse Rate [Pulse Oximeter] Respiratory Rate 12 10 L 14 Blood Pressure 131/115 H Blood Pressure [Ri ght Forearm] Pulse Oximetry 93 86 L 92 Oxygen Delivery Me thod 09/22/24 16:16 09/22/24 16:17 09/22/24 16:30 Temperature Pulse Rate 96 81 86 Pulse Rate [Pulse Oximeter] Respiratory Rate 15 12 15 Blood Pressure 134/101 H Blood Pressure [Ri ght Forearm] Pulse Oximetry 93 96 96 Oxygen Delivery Me thod 09/22/24 16:32 09/22/24 16:33 09/22/24 16:45 Temperature Pulse Rate 76 94 67 Pulse Rate [Pulse Oximeter] Respiratory Rate 9 L Blood Pressure 149/94 H Blood Pressure [Ri ght Forearm] Pulse Oximetry 96 94 95 Oxygen Delivery Me thod 09/22/24 16:47 09/22/24 17:00 09/22/24 17:02 Temperature Pulse Rate 82 82 71 Pulse Rate [Pulse Oximeter] Respiratory Rate 15 13 17 Blood Pressure 122/94 H 115/80 Blood Pressure [Ri ght Forearm] Pulse Oximetry 92 93 96 Oxygen Delivery Me thod 09/22/24 17:26 09/22/24 17:30 09/22/24 17:32 Temperature Pulse Rate Pulse Rate [Pulse Oximeter] Respiratory Rate 19 12 18 Blood Pressure 176/137 H Blood Pressure [Ri ght Forearm] Pulse Oximetry Oxygen Delivery Me thod Course Course ED Course: On arrival patient was placed on cardiac monitoring as well as O2 saturation monitoring. An EKG was done on arrival which showed atrial fibrillation with rapid ventricular response of 162. No acute ST segment changes. An IV was placed, routine labs drawn. Blood pressure was reassuring. I think it is probable that his symptoms started last night, but with the episode that he had 5 days ago I am a little more hesitant to simply cardiovert. I gave him 20 mg of IV diltiazem, heart rate is improved to 120. Initial point of care troponin is 0.02. Other labs reviewed and normal. He had 20 mg of IV diltiazem, initially had rate control into the 90s, blood pressure tolerated it well. He did not stay controlled for very long though and did go back up into the 120s and 30s. I gave him a 2nd IV dose of diltiazem 20 mg. He did have good rate control at that point, I kept him in the ER for another hour or hour and a half for observation. When I went in to check on him this last time he had converted back to sinus rhythm with a rate in the 70s. An EKG was repeated. This showed a sinus rhythm, ventricular rate of 75. Nonspecific intraventricular block. Normal indices otherwise. Patient says that his Clinic in [place] never has any availability and he is interested in switching clinics. He is willing to see somebody in follow-up. I recommended that we put him on something for blood pressure, his previous medications were lisinopril and hydrochlorothiazide, however I am going to use metoprolol today to help with a little bit of rate control if he does go back into atrial fibrillation. I am also putting him on a 30 day course of Eliquis. His chads Vasc score is 1, I do not know that he will need long-term anticoagulation, but given that he has now converted to sinus I did feel that putting him on short-term anticoagulation would be probably better. I have asked him to follow-up in clinic in the next 2-3 weeks to reassess how his blood pressure is doing and see if he feels that he has had recurrent AFib. It may be worthwhile to have him do a ZIO patch if he feels he is having recurrent episodes. Other labs are reviewed and are normal including magnesium. He is feeling well at this time. Will discharge home with above medications. Return any time if he has recurrent AFib with rapid ventricular rate. Vital Signs Vital signs: Initial Vital Signs Temperature 96.9 F L 09/22/24 12:56 Temperature Source Temporal Artery Scan 09/22/24 12:56 Pulse Rate 120 H 09/22/24 12:56 Pulse Oximetry 96 09/22/24 12:56 Oxygen Delivery Method Room Air 09/22/24 12:56 Vital Signs Temperature 96.9 F L 09/22/24 12:56 Pulse Rate 120 H 09/22/24 12:56 Pulse Oximetry 96 09/22/24 12:56 Oxygen Delivery Method Room Air 09/22/24 12:56 Temperature 96.9 F L 09/22/24 12:56 Pulse Rate 71 09/22/24 17:02 Respiratory Rate 18 09/22/24 17:32 Blood Pressure 176/137 H 09/22/24 17:32 Pulse Oximetry 96 09/22/24 17:02 Oxygen Delivery Method Room Air 09/22/24 12:56 Medications Administered Medications: Discontinued Medications Generic Name Dose Route Start Last Admin Trade Name Anthonyq PRN Reason Stop Dose Admin Diltiazem HCl 20 mg 09/22/24 13:13 09/22/24 14:03 Diltiazem 5 Mg/Ml Inj IVP 09/22/24 13:14 20 mg ONCE ONE Administration Diltiazem HCl 240 mg 09/22/24 14:24 09/22/24 15:40 Diltiazem 240 Mg Cap (Cd) PO 09/22/24 14:25 240 mg ONCE ONE Administration Diltiazem HCl 20 mg 09/22/24 14:40 09/22/24 14:51 Diltiazem 5 Mg/Ml Inj IVP 09/22/24 14:41 20 mg ONCE ONE Administration Medical Decision Making Lab Data Labs: Lab Results 09/22/24 09/22/24 Range/Units 13:14 13:25 WBC 11.14 H (4.50-11.00) K/uL RBC 5.17 (4.30-5.90) m/uL Hgb 15.7 (13.5-17.5) gm/dL Hct 47.9 (37.0-53.0) % MCV 93 (80-100) fL MCH 30 (26-34) pg MCHC 33 (32-36) gm/dL RDW Coeff of Carly 13.6 (11.5-15.5) % Plt Count 281 (140-440) K/uL Neut % (Auto) 62.4 (42.0-72.0) % Lymph % (Auto) 27.6 (20-44) % [place] % (Auto) 8.3 (0.0-11.0) % Eos % (Auto) 0.4 (0.0-7.0) % Baso % (Auto) 0.4 (0.0-3.0) % Neut # (Auto) 7.00 (1.7-7.0) K/uL Lymph # (Auto) 3.10 H (0.90-2.90) K/uL [place] # (Auto) 0.90 (0.00-0.90) K/UL Eos # (Auto) 0.00 (0.00-0.50) K/uL Baso # (Auto) 0.00 (0.00-0.30) K/uL Abs Immat Gran (auto) 0.10 (0.00-0.30) K/uL Imm/Tot Granulo (auto) 0.9 % D-Dimer Quant (PE/DVT) < 0.27 (0.00-0.50) ug/ml Sodium 141 (135-149) mmol/L Potassium 3.9 (3.6-5.1) mmol/L Chloride 106 (96-114) mmol/L Carbon Dioxide 29 (20-32) mmol/L Anion Gap 6 L (7-15) mEq/L BUN 24 (5-24) mg/dL Creatinine 1.0 (0.5-1.5) mg/dL Estimated GFR 95 ml/min Glucose 113 (60-115) mg/dL Lactate 1.1 (0.5-1.9) mmol/L Calcium 9.0 (8.4-10.6) mg/dL Magnesium 2.2 (1.5-2.6) mg/dL Total Bilirubin 0.7 (0.1-1.5) mg/dL AST 28 (12-35) U/L ALT 32 (4-50) U/L Alkaline Phosphatase 74 (40-150) U/L C-Reactive Protein 1.0 (0.5-1.0) mg/dL NT-Pro-B Natriuret Pep 644 pg/mL Total Protein 6.7 (6.0-8.3) g/dL Albumin 4.0 (3.3-5.0) g/dL TSH 0.663 (0.270-4.200) uIU/mL POC Troponin I 0.02 (0.01-0.04) ng/ml Discharge Plan Discharge Clinical Impression: Atrial fibrillation with rapid ventricular response Patient Disposition: Home, Self-Care Condition: Improved Instructions: A-fib (Atrial Fibrillation) (ED) Additional Instructions: Today, I am putting you on a medication that both lowers blood pressure and controlled heart rate. My hope is that if you go into atrial fibrillation again, this will help keep the rate more controlled. I am also putting you on a short-term blood thinner. I would recommend that you take the Eliquis for 30 days. You should be seen in clinic in the next couple of weeks for recheck. If you have recurrent atrial fibrillation with a fast heart rate, above 110-120, you should come back to the ER. If your blood pressures are running low, or if you are feeling significantly lightheaded, you can decrease the metoprolol to once daily. Prescriptions: New metoprolol succinate 50 mg tablet extended release 24 hr 50 mg PO BID Qty: 60 2RF Eliquis 5 mg tablet 5 mg PO BID Qty: 60 2RF Follow Up/Referrals: Abdiel Chavez MD [Primary Care Provider] - Stand Alone Forms: [employer] Info Instructions
[2024-09-22 14:17] LABS: D Dimer Quantitative* < 0.27 ug/ml (0.00-0.50); NT Pro B Type NatriureticPept* 644 pg/mL
[2024-09-22 14:24] LABS: Troponin, Point-of-Care* 0.02 ng/ml (0.01-0.04)
[2024-09-22 14:32] LABS: TSH With Reflex to FT4* 0.663 uIU/mL (0.270-4.200)
[2024-09-22] MEDS: dilTIAZem 240 MG CAP (CD) PO (15:40)
== END 2024-09-22 17:58 | disposition home or self-care (01) ==
PROVIDERS: Emergency Provider Emergency Medicine; PCP Family Medicine
DX: I48.20 Chronic atrial fibrillation, unspecified (principal)
CPT/HCPCS: 36415; 71045; 80053; 83605; 83735; 83880; 84443; 84484; 85025; 85379; 86140; 99284; A9270

== ENCOUNTER 2025-01-24 13:02 | Outpatient (CLI) | payer BC, SELFPAY | END 2025-01-24 13:03 | disposition home or self-care (01) | PROVIDERS: PCP Family Medicine; Visit Provider Family Medicine | DX: I10 Essential (primary) hypertension (principal) | CPT/HCPCS: 80048; 80061 ==

== ENCOUNTER 2025-01-26 20:32 | Emergency (ER) | payer BC, SELFPAY ==
[2025-01-26] VITALS (8 sets, daily range): BP systolic 158–187; BP diastolic 81–105; PULSE 74–91; RESP 13–21; TEMP 37.3; O2SAT 93–97; BMI 50.2
--- OUTSIDE RECORDS SUMMARY | 2025-01-26 20:34 | XMS_ITS | Clinical Summary ---
Author Organization [facility] Address [address] [place] [address] Care Team Providers Care Res Habilitation Assistant Name Role Phone Abdiel Chavez M.D. Primary Care Jose rodriguez Source Comments Patient records contain information from all sites at [facility]. For routine questions regarding patient records, call [phone] during business hours, M-F 8:00 AM - 5:00 PM Central Time. Record requests for emergency care only can be directed to [phone] at any time.[facility] Allergies Active Allergy Reactions Criticality Noted Date [...] by mouth daily. 90 tablet 3 4 Active febuxostat (Uloric) 40 mg tabletIndication s:Gout [...] pressure higher, but didn't have true allergy. Immunizations Immunization Administration Dates Next Due DTaP [...] by your partner or ex-partner? No 06/11/2021 Hunger Vital Sign Answer Date Recorded [...] place to sleep or slept in a long term (including now)? 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 Inhaled Oxygen Concentration - - [...] of 3 - 19+ 3-dose series) 1998 HPV Vaccines (1 - 3-dose SCDM series) 2006 COVID-19 Vaccine ( - season) 2024 Depression Screening (Annual PHQ-2) 06/28/2024 Visit: Chronic Disease, age 18+ 10/31/2024 11/01/2023 Office Visit for Blood Pressure Check / Re-check 11/14/2024 11/15/2023 Influenza Vaccine (#1) 2025 11/10/2021 DTaP,Tdap,and Td Vaccines (4 - Td or Tdap) 12/17/2025 12/18/2015, 03/13/2010, 04/05/1985, Additional history exists Fasting Glucose for Diabetes Screening 10/31/2026 11/01/2023, 11/01/2023, 07/16/2023, Additional history exists Lipid (Cholesterol) Screening 10/31/2028 11/01/2023, 11/10/2021, 08/20/2020 Pneumococcal vaccine (0-49 years) Aged Out No longer eligible based on patient's age to complete this topic Procedures Procedure Name Priority Date/Time Associated Diagnosis Comments COMPREHENSIVE METABOLIC PANEL, S/P Routine 11/01/2023 10:05 AM CDT Hypertension Essential Primary LIPID PANEL, S Routine 11/01/2023 10:05 AM CDT Screening Test Laboratory from Last 3 Months or Most Recently [...] 10:05 AM CDT 11/01/2023 1:20 PM CDT Abdiel Carson M.D. LAB BLOOD ADD-O N Final Result [facility] [address] [place] [address], [place] [facility] [employer] [facility] [place] [address] [place] [address] * (ABNORMAL) Comprehensive Metabolic Panel (11/01/2023 10:05 [...] 10:05 AM CDT 11/01/2023 1:20 PM CDT Abdiel Carson M.D. LAB BLOOD ADD-O N Final Result [facility] [address] [place] [address], [place] [facility] [employer] [facility] [place] [address] [place] [address] from Last 3 Months or Most Recently Relevant to Health Maintenance Insurance [facility] Care Teams Res Habilitation Assistant Relationship Specialty Start Date End Date Abdiel Chavez M.B.B.S., MDanni. [address] [place], [place] [address]K[place] [id number] PCP - General Family Medicine 01/18/19
--- OUTSIDE RECORDS SUMMARY | 2025-01-26 20:34 | XMS_ITS | Clinical Summary ---
Author Organization [facility] Address [address] [place] [id number] Care Team Providers Care Associate Director Career Services Name Role Phone Abdiel Chavez MD Primary Care Provider [phone] Allergies Active Allergy Reactions Criticality Noted Date [...] Comments Blood Pressure 141/99 07/16/2023 12:22 PM GRADE FOREMAN Pulse 97 07/16/2023 12:22 PM GRADE FOREMAN Temperature 36.3 C (97.4 F) 07/16/2023 11:12 AM GRADE FOREMAN Respiratory Rate 22 07/16/2023 11:12 AM GRADE FOREMAN Oxygen Saturation 100% 07/16/2023 12:23 PM GRADE FOREMAN Inhaled Oxygen Concentration - - Weight 133.8 kg (295 lb) 07/16/2023 11:12 AM GRADE FOREMAN Height 175.3 cm (5' 9) 06/18/2022 9:00 AM GRADE FOREMAN Body Mass Index 43.56 06/18/2022 9:00 AM GRADE FOREMAN Plan of Treatment Health Maintenance Due Date Last Done Comments ADVANCE CARE PLANNING 1979 ANNUAL REVIEW OF HM ORDERS 1979 CT COLONOGRAPHY 1979 FIT 1979 FLEX SIG 1979 sDNA (Cologuard) 1979 YEARLY PREVENTIVE VISIT 1982 COLONOSCOPY 1989 COLORECTAL CANCER SCREENING 1989 HIV SCREENING 1994 HEPATITIS C SCREENING 1997 HEPATITIS B VACCINE (1 of 3 - 19+ 3-dose series) 1998 LIPID 2019 COVID-19 VACCINE (1 - season) 2024 PHQ-2 (once per calendar year) 2024 INFLUENZA VACCINE (#1) 2025 11/10/2021 DTAP/TDAP/TD VACCINE (4 - Td or Tdap) 12/17/2025 12/18/2015, 03/13/2010, 04/05/1985, Additional history exists DIABETES SCREENING 07/16/2026 07/16/2023, 1 , 04/11/2022 ZOSTER VACCINE (1 of 2) 2029 HPV VACCINE (No Doses Required) Completed MENINGITIS VACCINE Aged Out No longer eligible based on patient's age to complete this topic PNEUMOCOCCAL VACCINE: PEDIATRICS (0 to 5 YEARS) AND AT-RISK PATIENTS (6 to 49 YEARS) Aged Out No longer eligible based on patient's age to complete this topic Medical Devices Implanted Type Area Porcelain Enameling Supervisor Device Identifier Shelf Expiration Date Model / Serial / Lot Button Suture Repair Large Ti F/Pectoralis Major - [id number] Implanted:Qty : 1 on 06/24/2022 by Maykel Sexton MD at [facility] Metallic Hardware/Anc hor Right: Shoulder [employer]REX 02/25/2026 AR-2267 / / [id number] Button Suture Repair Large Ti F/Pectoralis Major - [id number] Implanted:Qty : 2 on 06/24/2022 by Maykel Sexton MD at [facility] Metallic Hardware/Anc hor Right: Shoulder ARTHREX 09/25/2025 AR-2267 / / [id number] Procedures Procedure Name Priority Date/Time Associated Diagnosis Comments BASIC METABOLIC PANEL STAT 07/16/2023 11:52 AM GRADE FOREMAN from Last 3 Months or Most Recently Relevant to Health Maintenance Results * (ABNORMAL) Basic metabolic panel (BMP) (07/16/2023 11:52 AM GRADE FOREMAN) [facility] Sodium 139 135 - 145 mmol/L 07/16/2023 12:45 PM GRADE FOREMAN [facility] Comment:Reference intervals for this test were updated on 03/23/2023 to more accurately reflect our healthy population. There may be differences in the flagging of prior results with similar values performed with this method. Interpretation of those prior results can be made in the context of the updated reference intervals. Potassium 4.0 3.4 - 5.3 mmol/L 07/16/2023 12:45 PM GRADE FOREMAN [facility] Chloride 101 98 - 107 mmol/L 07/16/2023 12:45 PM GRADE FOREMAN [facility] Carbon Dioxide (CO2) 25 22 - 29 mmol/L 07/16/2023 12:45 PM GRADE FOREMAN [facility] Anion Gap 13 7 - 15 mmol/L 07/16/2023 12:45 PM GRADE FOREMAN [facility] Urea Nitrogen 13.7 6.0 - 20.0 mg/dL 07/16/2023 12:45 PM GRADE FOREMAN [facility] Creatinine 0.84 0.67 - 1.17 mg/dL 07/16/2023 12:45 PM GRADE FOREMAN [facility] GFR Estimate >90 >60 mL/min/1. 73m2 07/16/2023 12:45 PM GRADE FOREMAN [facility] Calcium 9.6 8.6 - 10.0 mg/dL 07/16/2023 12:45 PM GRADE FOREMAN [facility] Glucose 145(H) 70 - 99 mg/dL 07/16/2023 12:45 PM GRADE FOREMAN [facility] Blood STRUCTURE OF LEFT HAND / Unknown Venipuncture / Unknown 07/16/2023 11:52 AM GRADE FOREMAN 07/16/2023 12:21 PM GRADE FOREMAN us Jamshid Husain MD LAB - BLOOD ORDERABLES Final Res ult [facility] [address] Lab (1st floor, no room number) [place] [address], [facility] [place] [phone] from Last 3 Months or Most Recently Relevant to Health Maintenance Insurance BCBS OUT OF STATE BCBS OUT OF STATE [place]LAH JOHNSON Advance Directives For more information, please contact: [phone] * Full Code (Latest Code Status on File) Date Activated Date Inactivated Comments 06/24/2022 10:35 PM 06/25/2022 1:02 PM All basic and advanced life-sustaining interventions are performed as appropriate Question Answer Comments Code status determined by: Discussion with lynne nt/ legal decision maker Care Teams Associate Director Career Services Relationship Specialty Start Date End Date Abdiel Chavez MD [address] [place] [address] [place] [id number] PCP - General 07/16/23
--- OUTSIDE RECORDS SUMMARY | 2025-01-26 20:34 | XMS_ITS | Clinical Summary ---
Author Organization [facility] Address [address] [place] [id number] Care Team Providers Care Locomotive Boilermaker Name Role Phone Pcp, No Primary Care [...] on file Legal Sex Male 8:07 AM REPORTING DEVELOPER Gender Identity Not on file Sexual Orientation Not on file 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 on file Not on file Not on file Obstetrics History Last Filed Vital Signs Vital Sign Reading Time Taken Comments Blood Pressure 163/93 08/30/2018 10:26 AM REPORTING DEVELOPER Pulse 100 08/30/2018 10:26 AM REPORTING DEVELOPER Temperature 38.4 C (101.1 F) 08/30/2018 10:26 AM REPORTING DEVELOPER Respiratory Rate 20 01/26/2018 1:33 PM CDT Oxygen Saturation 97% 08/30/2018 10:26 AM REPORTING DEVELOPER Inhaled Oxygen Concentration - - Weight 136.5 kg (301 lb) 08/30/2018 10:26 AM REPORTING DEVELOPER Height 176 cm (5' 9.29) 08/30/2018 10:26 AM REPORTING DEVELOPER Body Mass Index 44.08 08/30/2018 10:26 AM REPORTING DEVELOPER Plan of Treatment Health Maintenance Due Date Last Done Comments HIV for age 15-65 1994 Hepatitis C screening for age 18-79 1997 Hepatitis B series for 19+ (1 of 3 - 19+ 3-dose series) 1998 Depression screening for age 12+ 10/11/2018 10/11/2017, 07/14/2016, 07/16/2015 BMI (ht and wt on same day) for age 18+ 08/31/2019 08/30/2018, 07/14/2018, 06/08/2018, Additional history exists COVID-19 vaccine series (2023- season) 2024 Colonoscopy through age 75 2024 Lipids for age 45-75 2024 03/14/2014, 03/14/20 14 Influenza Vaccine (#1) 2025 Tetanus booster 12/17/2025 12/18/2015, 03/13/2010 Pneumococcal series for age 6-49 Aged Out [...] - 199 mg/dL 03/14/2014 3:32 PM CDT [facility] TRIGLYCERIDES 522(H) <150 mg/dL 03/14/2014 3:32 PM CDT [facility] HDL CHOLESTEROL 29(L) >40 mg/dL 4 3:32 PM CDT [facility] NON-HDL CHOLESTEROL 145(H) <145 mg/dl 03/14/2014 3:32 PM CDT [facility] CHOL/HDL RATIO 6.00(H) <4.50 03/14/2014 3:32 PM CDT [facility] LDL CHOLESTEROL 4 3:32 PM CDT [facility] Comment:Invalid LDL when Tri g >400, reflexed to measured LDL PATIENT STATUS FASTING 03/14/2014 3:32 PM CDT [facility] Blood specimen (specimen) BLOOD SPECIMEN / Unknown Venipuncture / Unknown 03/14/2014 2:39 PM CDT 03/14/2014 2:40 PM CDT us Nicole Chinchilla MD CHEMISTRY Shahnaz l Result [facility] [address] [place] [address], from Last 3 Months or Most Recently Relevant to Health Maintenance Advance Directives * Full Code (Latest Code Status on File) Date Activated Date Inactivated Comments 05/03/2014 2:04 PM 05/04/2014 5:00 PM * Full Code Date Activated Date Inactivated Comments 05/03/2014 8:00 AM 05/03/2014 2:04 PM Care Teams Locomotive Boilermaker Relationship Specialty Start Date End Date Pcp, No . PCP - General 09/24/18
--- NOTE | 2025-01-26 21:04 | CRLHL7_ITS ---
For Patients: As a result of the Century Cures Act, medical imaging exams and procedure reports are released immediately into your electronic medical record. You may view this report before your referring provider. If you have questions, please contact your health care provider. INDICATION: Chest pain. TECHNIQUE: Chest 2 views. COMPARISON: 09/22/2024. FINDINGS: Cardiovascular and mediastinum: Heart size is normal. Unremarkable mediastinum. Lungs and pleural spaces: Low lung volumes. No sign of infiltrate or mass. No sign of pleural effusion. No pneumothorax. Bones and soft tissues: No significant findings. IMPRESSION: No acute findings. Dictated by Elmer Alanis MD @ 01/26/2025 9:35:46 PM (Electronically Signed)
[2025-01-26 21:09] LABS: Troponin, Point-of-Care* 0.01 ng/ml (0.01-0.04)
[2025-01-26 21:11] LABS: Hematocrit 43.4 % (37.0-53.0); Hemoglobin* 14.1 gm/dL (13.5-17.5); Immature Granulocytes Abs Auto 0.03 K/uL (0.00-0.30); Immature Granulocytes Pct Auto 0.3 %; Mean Corpuscular HGB Conc 33 gm/dL (32-36); Mean Corpuscular Hemoglobin 30 pg (26-34); Mean Corpuscular Volume 93 fL (80-100); RDW Coefficient of Variation % 14.4 % (11.5-15.5); Red Blood Count 4.67 m/uL (4.30-5.90); White Blood Count* 9.88 K/uL (4.50-11.00)
[2025-01-26] MEDS: ASPIRIN 81 MG TAB.CHEW 324 MG PO (21:13)
[2025-01-26 21:18] LABS: Lymphocytes Absolute Auto 1.70 K/uL (0.90-2.90); Slide Review Reflex No
[2025-01-26 21:26] LABS: Chloride* 109 mmol/L (96-114); Potassium* 4.2 mmol/L (3.6-5.1); Sodium* 142 mmol/L (135-149)
[2025-01-26 21:29] LABS: Anion Gap 8 mEq/L (7-15); Blood Urea Nitrogen* 20 mg/dL (5-24); Calcium* 9.9 mg/dL (8.4-10.6); Carbon Dioxide* 25 mmol/L (20-32); Creatinine* 1.1 mg/dL (0.5-1.5); Est. Creatinine Clearance* 84.80; Estimated Glomerular Filt Rate 84 ml/min; Glucose* 121 mg/dL (60-115)
[2025-01-26 21:41] LABS: D Dimer Quantitative* 0.20 ug/ml (0.00-0.50)
--- NOTE | 2025-01-26 21:47 | ED.CHESTPAIN ---
HPI - Chest Pain General Date Seen: 01/26/25 Chief Complaint: Chest Pain Stated Complaint: A fib? heart issue Time Seen by Provider: 01/26/25 20:43 History of Present Illness HPI narrative: Very pleasant 44-year-old gentleman with a past medical history of AFib, sleep apnea, elevated BMI, gout, osteoarthritis, elevated A1c, hypertension. He presents to the ER today by private car from work with an episode of chest pain. He recalls that he had an episode of AFib a few months ago that presented similarly with a pain in his chest. He never really felt palpitations. His far as he knows he has not had any AFib since that time. He follows with Dr. Barbosa for primary care and was recently told that his lungs and have anymore AFib he could probably stop his Eliquis for stroke prophylaxis and switched aspirin. He has not had any recent episodes of chest pain. No recent cough. No fever. No swelling in his legs. He works at [employer]. He was at work this evening less than an hour prior to arrival when he suddenly felt like he had a sharp pain in his central chest in the upper half of his sternum. Says it felt like it was shot by gun. It made him feel mildly short of breath. It did not radiate to his arms or to his back. It did make both of his hands tingly. All the pain and symptoms resolved as he was driving here to the ER. He is now feeling back to normal except for his hands are still slightly tingly, but they are improving. He was not nauseous. No palpitations. Related Data Home Medications ?Medication ?Instructions ?Recorded ?Confirmed apixaban 5 mg tablet (Eliquis) 5 mg PO BID 01/26/25 01/26/25 Previous Rx's ?Medication ?Instructions ?Recorded febuxostat 40 mg tablet (Uloric) 40 mg PO QDAY #90 tabs 01/24/25 lisinopril 20 mg tablet 20 mg PO QDAY #90 tabs 01/24/25 metoprolol succinate 100 mg 100 mg PO BID #180 tabs 01/24/25 tablet,extended release 24 hr Allergies Allergy/AdvReac Type Severity Reaction Status Date / Time indomethacin Allergy Intermediate Urine Verified 01/26/25 20:44 Retention colchicine Allergy Unknown Verified 01/26/25 20:44 [facility] Medical History (Updated 01/26/25 @ 23:26 by Murray Salcedo MD) History of COVID-19 ?Z86.16 - Personal history of COVID-19 (ICD-10) History of peptic ulcer disease ?Z87.11 - Personal history of peptic ulcer disease (ICD-10) Atrial fibrillation ?I48.91 - Unspecified atrial fibrillation (ICD-10) Primary hypertension ?I10 - Essential (primary) hypertension (ICD-10) Elevated hemoglobin A1c ?R73.09 - Other abnormal glucose (ICD-10) Arthritis of right acromioclavicular joint ?M19.011 - Primary osteoarthritis, right shoulder (ICD-10) Primary osteoarthritis of left ankle (02/07/18) ?M19.072 - Primary osteoarthritis, left ankle and foot (ICD-10) Morbid obesity ?E66.01 - Morbid (severe) obesity due to excess calories (ICD-10) Gout ?M10.9 - Gout, unspecified (ICD-10) LARRY (generalized anxiety disorder) ?F41.1 - Generalized anxiety disorder (ICD-10) LAVERNE (obstructive sleep apnea) ?G47.33 - Obstructive sleep apnea (adult) (pediatric) (ICD-10) Surgical History (Updated 10/05/24 @ 10:54 by Diamond Florse) History of amputation of fifth toe ?Z89.429 - Acquired absence of other toe(s), unspecified side (ICD-10) History of lumbar laminectomy ?Z98.890 - Other specified postprocedural states (ICD-10) Rupture of pectoralis major muscle ?S29.011A - Strain of muscle and tendon of front wall of thorax, initial encounter (ICD-10) History of elbow surgery (09/28/13) ?Z98.890 - Other specified postprocedural states (ICD-10) Family History (Updated 10/10/24 @ 22:52 by Elmer Barbosa MD) Maternal Grandfather Diabetes Heart disease Maternal Grandmother Diabetes Uncle Diabetes Father Diabetes High blood pressure Gout Social History (Updated 10/09/24 @ 12:45 by Yulisa Jessica ~ RMA, RMA) What is your current living situation?: I presently have a place to live Problems where you live: no known problems In the past 12 months, utilities in danger of being shut off: no In past 12 months, lack of transportation kept you from medical appts, meetings, work, or getting things needed for daily living: no In the past 12 mos, have been you worried that your food would run out before you had money to buy more?: never true In the past 12 mos, the food you bought just didn't last and you didn't have money to buy more?: never true Smoking Status: Never smoker Do you use any of these nicotine containing products: None Second hand tobacco smoke exposure: No How often do you have a drink containing alcohol: never How often do you have six or more drinks on one occasion: Never AUDIT-C Alcohol total score: 0 Non-prescribed substance use: denies use How often does anyone, including family, friends and others, physically hurt you: never How often does anyone, including family, friends and others, insult or talk down to you: never How often does anyone, including family, friends and others, threaten you with harm: never How often does anyone, including family, friends and others, scream or curse at you: never service: Yes Exam Narrative Exam Narrative: Constitutional: Appears well-developed and heavyset. Alert. Conversant. Non toxic. Alert and polite. HENT: Head: Atraumatic. Nose: Nose normal. Mouth/Throat: Oral mucosa is clear and moist. no trismus. Pharynx normal. Tonsils symmetric. No tonsillar enlargement, erythema, or exudate. Eyes: Conjunctivae normal. EOM normal. Pupils equal, round, and reactive to light. No scleral icterus. Neck: Normal range of motion. Neck supple. No tracheal deviation present. No JVD Cardiovascular: Normal rate, regular rhythm. No gallop. No friction rub. No murmur heard. Symmetric radial and PT artery pulses Pulmonary/Chest: Effort normal. No stridor. No respiratory distress. No wheezes. No rales. No rhonchi . No tenderness. Abdominal: Soft.No distension. No mass. No tenderness. No right upper quadrant tenderness. No rebound. No guarding. Musculoskeletal: RUE: Normal range of motion. No tenderness. No deformity LUE: Normal range of motion. No tenderness. No deformity RLE: Normal range of motion. No edema. No tenderness. No deformity LLE: Normal range of motion. No edema. No tenderness. No deformity Neurological: Alert and oriented to person, place, and time. Normal strength. CN II-VII intact. No sensory deficit. GCS eye subscore is 4. GCS verbal subscore is 5. GCS motor subscore is 6. Normal coordination Skin: Skin is warm and dry. No rash noted. No pallor. Normal capillary refill. Psychiatric: Normal mood. Normal affect. Polite. Const Vital Signs, click to edit/add: Vital Signs - 24 hr 01/26/25 20:42 01/26/25 21:50 01/26/25 22:25 Temperature 99.1 F Pulse Rate 79 76 Pulse Rate [Right Pulse Oximeter] 91 Respiratory Rate 20 Blood Pressure Blood Pressure [Right Upper Arm] 187/105 H Pulse Oximetry 97 93 94 Oxygen Delivery Method Room Air 01/26/25 22:28 01/26/25 22:30 01/26/25 22:33 Temperature Pulse Rate 82 74 79 Pulse Rate [Right Pulse Oximeter] Respiratory Rate 13 15 21 Blood Pressure 164/94 H 158/81 H Blood Pressure [Right Upper Arm] Pulse Oximetry 94 94 93 Oxygen Delivery Method 01/26/25 22:45 Temperature Pulse Rate 74 Pulse Rate [Right Pulse Oximeter] Respiratory Rate 16 Blood Pressure Blood Pressure [Right Upper Arm] Pulse Oximetry 96 Oxygen Delivery Method Course Vital Signs Vital signs: Initial Vital Signs Temperature 99.1 F 01/26/25 20:42 Temperature Source Temporal Artery Scan 01/26/25 20:42 Pulse Rate 91 01/26/25 20:42 Pulse Rhythm Regular 01/26/25 20:42 Pulse Strength 3+ Normal 01/26/25 20:42 Respiratory Rate 20 01/26/25 20:42 Respiratory Effort Normal, Spontaneous, Non-Labored 01/26/25 20:42 Respiratory Depth Normal 01/26/25 20:42 Blood Pressure 187/105 H 01/26/25 20:42 Blood Pressure Mean 132 H 01/26/25 20:42 Blood Pressure Position Sitting 01/26/25 20:42 Pulse Oximetry 97 01/26/25 20:42 Oxygen Delivery Method Room Air 01/26/25 20:42 Vital Signs Temperature 99.1 F 01/26/25 20:42 Pulse Rate 91 01/26/25 20:42 Respiratory Rate 20 01/26/25 20:42 Blood Pressure 187/105 H 01/26/25 20:42 Pulse Oximetry 97 01/26/25 20:42 Oxygen Delivery Method Room Air 01/26/25 20:42 Temperature 99.1 F 01/26/25 20:42 Pulse Rate 74 01/26/25 22:45 Respiratory Rate 16 01/26/25 22:45 Blood Pressure 158/81 H 01/26/25 22:33 Pulse Oximetry 96 01/26/25 22:45 Oxygen Delivery Method Room Air 01/26/25 20:42 Medications Administered Medications: Discontinued Medications Generic Name Dose Route Start Last Admin Trade Name Coco PRN Reason Stop Dose Admin Aspirin 324 mg 01/26/25 21:04 01/26/25 21:13 Aspirin 81 Mg Tab.Chew PO 01/26/25 21:05 324 mg ONCE ONE Administration MDM - Chest Pain MDM Narrative Medical decision making narrative: This patient presents to the ER today for evaluation of chest pain. Differential was broad. He has a history of AFib presenting similarly but did not have any palpitations tonight. Symptoms resolved prior to arrival but secured entrance monitor and EKG here in the ER shows sinus rhythm. Would recommend follow-up with PCP to arrange an outpatient Holter monitor for a couple of weeks monitoring to see if he might be having paroxysmal AFib. We considered possible ACS. He has not had any other episodes of chest pain recently to suggest unstable angina. however workup with EKG and troponin is negative. HEART score is 3. Given time since onset of symptoms, we did check initial and delta troponins and both are normal. I do not think the patient needs to be admitted for further sets of enzymes. EKG shows no evidence for pericarditis. Clinical presentation not suggestive of myocarditis. Chest x-ray shows no evidence for pneumonia, pneumothorax, pulmonary edema, pleural effusion, rib fracture, cardiomegaly. Mediastinum is normal on the x-ray. The patient has no ripping or tearing pain through to the back and has symmetric pulses on exam, no other acute neuro findings so I doubt aortic dissection. Risk of radiation and contrast exposure would outweigh the benefit of CT angiogram. We considered PE for this patient. D dimer is normal. Therefore the risk of radiation and contrast nephropathy would outweigh the benefit of CT PA. No wheezing or bronchospasm to suggest COPD/asthma. No signs of chest wall cellulitis, shingles, injury. With reasonable clinical confidence, I think the patient is safe for outpatient follow up. Discussed return precautions. Questions answered. Patient voices comfort with the plan. Lab Data Labs: Lab Results 01/26/25 01/26/25 Range/Units 20:45 21:04 WBC 9.88 (4.50-11.00) K/uL RBC 4.67 (4.30-5.90) m/uL Hgb 14.1 (13.5-17.5) gm/dL Hct 43.4 (37.0-53.0) % MCV 93 (80-100) fL MCH 30 (26-34) pg MCHC 33 (32-36) gm/dL RDW Coeff of Carly 14.4 (11.5-15.5) % Plt Count 251 (140-440) K/uL Neut % (Auto) 75.4 H (42.0-72.0) % Lymph % (Auto) 17.6 L (20-44) % [place] % (Auto) 6.6 (0.0-11.0) % Eos % (Auto) 0.0 (0.0-7.0) % Baso % (Auto) 0.1 (0.0-3.0) % Neut # (Auto) 7.40 H (1.7-7.0) K/uL Lymph # (Auto) 1.70 (0.90-2.90) K/uL [place] # (Auto) 0.70 (0.00-0.90) K/UL Eos # (Auto) 0.00 (0.00-0.50) K/uL Baso # (Auto) 0.01 (0.00-0.30) K/uL Abs Immat Gran (auto) 0.03 (0.00-0.30) K/uL Imm/Tot Granulo (auto) 0.3 % D-Dimer Quant (PE/DVT) 0.20 (0.00-0.50) ug/ml Sodium 142 (135-149) mmol/L Potassium 4.2 (3.6-5.1) mmol/L Chloride 109 (96-114) mmol/L Carbon Dioxide 25 (20-32) mmol/L Anion Gap 8 (7-15) mEq/L BUN 20 (5-24) mg/dL Creatinine 1.1 (0.5-1.5) mg/dL Estimated Creat Clear 84.80 Estimated GFR 84 ml/min Glucose 121 H (60-115) mg/dL Calcium 9.9 (8.4-10.6) mg/dL POC Troponin I 0.01 (0.01-0.04) ng/ml Imaging Data Chest x-ray: Attestation: I have reviewed the pertinent imaging results. Radiologist's impression: FINDINGS: Cardiovascular and mediastinum: Heart size is normal. Unremarkable mediastinum. Lungs and pleural spaces: Low lung volumes. No sign of infiltrate or mass. No sign of pleural effusion. No pneumothorax. Bones and soft tissues: No significant findings. IMPRESSION: No acute findings. ECG Data Attestation: I personally reviewed and interpreted this ECG as follows: Interpretation: Normal sinus rhythm Rate 80 RI interval 146 normal QRS axis. No pathologic Q-waves. QRS duration is 120 milliseconds. Continue area here for is none for acidic interventricular conduction delay. Not criteria for right bundle or left bundle. No ST segment elevation or depression. QTC 424 Discharge Plan Discharge Clinical Impression: Chest pain Patient Disposition: Home, Self-Care Condition: Stable Instructions: Chest Pain (DC) Additional Instructions: As we discussed, so far your workup looks reassuring. However it is very important for you to follow-up with your primary care provider, Dr. Barbosa, next week for recheck. Ask your doctor to arrange a Holter monitor to see if you are having any runs of AFib and ask your doctor about a stress test for your heart. In the meantime, return to the ER right away if you have any more episodes of pain, shortness of breath, palpitations, dizziness or lightheadedness, or if you have any other concerns. Prescriptions: No Action metoprolol succinate 100 mg tablet extended release 24 hr 100 mg PO BID Qty: 180 1RF lisinopril 20 mg tablet 20 mg PO QDAY Qty: 90 1RF febuxostat [Uloric] 40 mg tablet 40 mg PO QDAY Qty: 90 1RF Eliquis 5 mg tablet 5 mg PO BID Follow Up/Referrals: Elmer Barbosa MD [Primary Care Provider, Family Practice] Stand Alone Forms: [employer] Info Instructions
[2025-01-26 23:35] LABS: Troponin, Point-of-Care* 0.00 ng/ml (0.01-0.04)
== END 2025-01-26 23:45 | disposition home or self-care (01) ==
PROVIDERS: Emergency Provider Emergency Medicine; PCP Family Medicine
DX: R07.9 Chest pain, unspecified (principal)
CPT/HCPCS: 36415; 71046; 80048; 84484; 85025; 85379; 93005; 99283; 99284; 99285; A9270